=== PATIENT | female | born 1945 | race Caucasian/White ===

== ENCOUNTER → 2021-02-08 10:07 | Outpatient (CLI) | payer MEDICARE, OTHER, SELFPAY ==
[2021-02-08 11:40] LABS: COVID19 -Nasal RAPID Negative (Negative)
== END ==
PROVIDERS: Visit Provider Student in an Organized Health Care Education/Training Program
DX: Z01.812 Encounter for preprocedural laboratory examination (principal); Z20.822 Contact with and (suspected) exposure to COVID-19
CPT/HCPCS: 87635

== ENCOUNTER 2021-02-10 07:26 | Inpatient (IN) | payer MEDICARE, OTHER, SELFPAY ==
[2021-02-08 14:00] VITALS: BMI 32.3
[2021-02-10] VITALS (32 sets, daily range): BP systolic 99–151; BP diastolic 34–122; PULSE 65–98; RESP 8–18; TEMP 36.1–36.9; O2SAT 91–99; BMI 32.3
--- NOTE | 2021-02-10 08:20 | PM.PREOP ---
Pre-operative Note COVID-19 COVID-19 status: Negative Result date/Date tested (Pos, Neg/Pending): 02/08/21 Interval Note History & Physical reviewed/Exam performed by Physician: Yes Changes to H&P: No
[2021-02-10] MEDS: LACTATED RINGERS 1,000 ML 42 ML IV ×2 (08:46→10:34)
[2021-02-10] MEDS: CEFAZOLIN 1 GM VIAL 2 GM IV ×2 (08:55→17:02)
[2021-02-10] MEDS: SCOPOLAMINE 1 PATCH TOP (09:10)
--- NOTE | 2021-02-10 09:21 | SUR.OPER ---
Prone on spine table, head in foam head support, padded chest and pelvic supports, gel pad at knees, lower legs supported by pillows; nipples, genitalia and toes free of pressure, arms secured on foam padded arm boards at <90 degrees abduction. Tape over blanket at thigh secured to table.
[2021-02-10] MEDS: BUPIVACAINE LIPOSOME 266 MG/20 ML VIAL INJ (09:30)
--- NOTE | 2021-02-10 13:19 | DI.RAD.S_ITS ---
PROCEDURE: XR LUMBAR SPINE 2-3V INDICATIONS: L2-3, L3-4 TLIF TECHNIQUE: 2 intraoperative fluoroscopic spot films were obtained COMPARISON: None. FINDINGS: Low resolution fluoroscopic spot films show L2-3 and L3-4 interbody spacer grafts and pedicle screws at L2, L3 and L4 with associated paraspinal rods in good position. IMPRESSION: L2-3 and L3-4 interbody fusion instrumentation in progress Dictated by: Deepak Gasca M.D. on 02/10/2021 at 13:34 Approved by: Deepak Gasca M.D. on 02/10/2021 at 13:36
--- NOTE | 2021-02-10 13:30 | P.OP_ITS ---
Operative Date/Time/Diagnoses Date of procedure: 02/08/21 Time of procedure: 09:06 Pre-op diagnosis: 1. 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 L2-3, L3-4 spondylosis with radiculopathy Post-op diagnosis: same Procedure & Clinicians Procedure: 1. L2-3, L3-4 Postero-lateral and posterior interbody fusion 2. L2-3, L3-4 interbody cage placement. 3. L2-3, L3-4 decompressive laminectomy with bilateral facetecomies 4. L2-3, L3-4 Posterior segmental instrumentation 5. [place] of bone marrow from iliac crest 6. Utilization of microsurgical technique and operating microscope Same procedure as scheduled: Yes Indications: Patient has been having chronic back pain and worsening lumbar radiculopathy. Patient failed multiple conservative management with worsening pain weakness and numbness in her lower extremity. Patient has been having difficulty performing activity of daily living. After discussing risks benefits of treatment options, patient elected proceed with surgery. Surgeon: Carri Scott Account Service Associate: Abbe Nunez Click Yes if Unassisted: No Anesthesia Type: General Operative Notes Closure Type: primary Specimen(s): none sent Prosthetic devices, grafts, tissues, transplants, or devices: Globus revolve screws, Rise cages Applied: catheter Estimated Blood Loss (mL): 350 Blood products transfused: none Procedure in detail: Patient was seen in the preoperative area. Risks and benefits of the surgery was discussed with the patient. Informed consent was obtained from the patient and placed in the chart. Surgical site was marked. Patient was taken to the operative room. General anesthesia was administered. Prophylactic antibiotic was given to the patient less than 30 min before the incision was made. Patient was placed into a prone position on the Brian table. Patient's back was then prepped and draped in the sterile fashion. Time- out was performed at this time. Using AP and lateral C-arm imaging the interval between L2-3, L3-4 was identified and marked on patient's back. A 2 inch incision 2 in from midline was made on the left side first. The fascia was incised in line with skin incision. Globus MARS retractors was placed inside the incision and docked onto the L2 and L3 lamina. Using microsurgical technique and operating microscope, a L2 and L3 laminectomy and L2-3, L3-4 facetectomy was performed using a Kerrison rongeur. The disc space at L2-3, L3-4 was identified. And a total diskectomy was performed at L2-3, L3-4 level. The endplates were decorticated using a rasp and shaver. The total diskectomy and decortication was performed at L2-3, L3-4 level in order to to accomplish a L2-3, L3-4 fusion. The local bone from the laminectomy and facetectomy was saved for local bone grafting. Patient was found have severe central and neuroforaminal stenosis at both levels. The stenosis was fully decompressed after the laminectomy and facetectomy as well as the discectomies was completed. After the total diskectomy and decortication was completed, Trifecta bone graft material was combined with local bone that was harvested earlier. At this time, a separate skin is incision was made over the iliac crest. A Jamshidi needle was inserted into the iliac crest through a separate skin incision. 5 cc of bone marrow aspiration was obtained through the separate skin incision using a Jamshidi needle from the iliac crest. The bone marrow aspiration was combined with local bone and the Trifecta bone grafting material. The bone grafting material was placed into the L2-3, L3-4 interbody space along with two cages, one expandable cage at each level. The cages were expanded to their maximum height using the torque limiting screwdriver. At this time a mirror image incision was made on the right side. The fascia was incised in line with the skin incision. Globus MARS retractor was inserted and docked onto the L2-3, L3-4 posterolateral gutter. Using the power drill, posterior-lateral decortication was performed at L2-3, L3-4 level until bleeding cortical bone was identified. The remaining bone grafting material was placed into the L2-3, L3-4 posterior lateral gutter he order to accomplish posterolateral fusion at the L2-3, L3-4 levels. Using the double C-arm technique, pedicle screws were placed into the L2, L3, L4 pedicles bilaterally. This was done by placing the Jamshidi needle into the pedicles, then placing the guidewires over the Jamshidi needle, and finally placing the cannulated screws over the guidewires bilaterally. After the pedicle screws were placed, 2 titanium rods was locked into the heads of the pedicle s crews using locking caps and torque limiting screwdriver. Total 6 pedicles screws were placed. After all the hardware was placed, and confirmed with AP and lateral C-arm imaging, the wound was then irrigated with sterile normal saline and packed with Ray-Domo gauze for 3 min to accomplish hemostasis. After the gauze was removed the deep fascia was closed with #1 Vicryl suture. The subcutaneous layer was closed with 2-0 Vicryl. The skin was closed with skin som. Patient tolerated the procedure well. There were no complications. Complications: none Post-operative Condition: stable Disposition: PACU Plan for aftercare: Admit to inpatient hospital
[2021-02-10] MEDS: fentaNYL 100 MCG/2 ML INJ IV ×2 (13:49→13:58)
[2021-02-10] MEDS: HYDROMORPHONE 2 MG INJ IV (13:52)
[2021-02-10] MEDS: METOCLOPRAMIDE 10 MG/2 ML INJ IV (13:57)
[2021-02-10] MEDS: LORazepam 2 MG/ML INJ 0.5 MG IV (14:02)
[2021-02-10] MEDS: hydrOXYzine 50 MG/ML INJ IM (15:00)
--- NOTE | 2021-02-10 15:59 | PC.NURSE ---
Report received by PACU nurse.
--- NOTE | 2021-02-10 16:15 | SUR.PHASEI ---
PACU NOTE: PATIENT STARTED IN RECOVERY WITH 10/10 PAIN, MEDICATION GIVEN IV TITRATED TO EFFECT OF TOLERABLE LEVEL 4/10. PATIENT THEN DOZED OF FREQ WITH BRIEF APNEIC PERIODS REQUIRING FREQ REMINDERS TO TAKE DEEP BREATHS. ONCE THIS RESOLVED, AND VSS, REPORT CALLED TO GUSTAVO OSEGUERA FOR RM 222. ALL QUESTIONS ANSWERED TO SATISFACTION. PATIENT BROUGHT UP W/ 2L/NC IN PLACE, SIDELYING WITH SUPPORT PILLOWS, ICE PACK, AND PAIN REMAINING AT 4/10 DESCRIBED DISCOMFORT BUT TOLERABLE. HV COMPRESSED AND PATENT WITH SEROUS/SANG DRAINAGE. FELIX DRAINED OF 400CC'S YELLOW CLOUDY URINE WITH SEDIMENT. SENT UA TO LAB AFTER RECEIVED VERBAL ORDER. HANDOFF OF PATIENT AT BEDSIDE IN RM 222 TO GUSTAVO OSEGUERA. PATIENT IN STABLE CONDITION. FOOT SCD'S IN PLACE, O2 AT 2L/NC.
[2021-02-10 16:18] LABS: Bacteria Urine None Seen
[2021-02-10] MEDS: SODIUM CHLORIDE 0.9% 1,000 ML 100 ML IV (16:29)
[2021-02-10] MEDS: GABAPENTIN 400 MG CAPSULE 800 MG PO ×2 (17:03→21:33)
[2021-02-10 17:15] LABS: Appearance Urine UA TURBID; Bilirubin Urine UA NEGATIVE (NEGATIVE); Color Urine UA YELLOW; Glucose Urine UA NEGATIVE (Negative); Ketones Urine UA 2+ (NEGATIVE); Leukocyte Esterase Urine UA NEGATIVE (NEGATIVE); Nitrite Urine UA NEGATIVE (Negative); Occult Blood Urine UA NEGATIVE (Negative); Protein Urine UA NEGATIVE (Negative); Specific Gravity Urine UA 1.025 (1.000-1.035); Urobilinogen Urine UA 0.2 E.U./dL (0.2); pH Urine UA 5.5 (4.5-8.0)
[2021-02-10 17:21] LABS: Amorphous Sediment Urine 1+; Culture Indicated Urine Cult Not Indicated; RBC Urine 0-1/HPF (0-5/HPF); Squamous Epithelial Cell Urine 0-1 /HPF (0-5/HPF); Transitional Epi Cells Urine 1-5/HPF (0-5/HPF); WBC Urine 0-1/HPF (0-5/HPF)
[2021-02-10] MEDS: HYDROMORPHONE 0.5 MG INJ IV ×2 (18:03→21:38)
[2021-02-10] MEDS: MAGNESIUM OXIDE 400 MG TABLET PO (20:30)
[2021-02-10] MEDS: BACLOFEN 10 MG TABLET PO (20:30)
[2021-02-10] MEDS: DOCUSATE 100 MG CAPSULE PO (20:31)
[2021-02-10] MEDS: SENNOSIDES 8.6 MG TABLET 17.2 MG PO (20:31)
[2021-02-10] MEDS: BUDESONIDE 0.5 MG/2 ML NEB INH (21:33)
[2021-02-11] VITALS (8 sets, daily range): BP systolic 102–122; BP diastolic 55–67; PULSE 78–92; RESP 14–18; TEMP 36.6–37.1; O2SAT 93–97
[2021-02-11] MEDS: OXYCODONE IR 5 MG TABLET 10 MG PO ×5 (00:28→20:25)
[2021-02-11] MEDS: hydrOXYzine pamoate 25 MG CAPSULE PO ×3 (00:28→11:49)
[2021-02-11] MEDS: CEFAZOLIN 1 GM VIAL 2 GM IV (00:29)
[2021-02-11] MEDS: SODIUM CHLORIDE 0.9% 1,000 ML 100 ML IV (02:05)
[2021-02-11] MEDS: PANTOPRAZOLE DR 40 MG TABLET PO (05:11)
[2021-02-11 05:23] LABS: Hematocrit 29.3 % (36-46); Hemoglobin 9.9 g/dL (12.0-16.0)
[2021-02-11] MEDS: hydroCHLOROthiazide 25 MG TABLET PO (08:19)
[2021-02-11] MEDS: DOCUSATE 100 MG CAPSULE PO ×2 (08:19→20:25)
[2021-02-11] MEDS: GABAPENTIN 400 MG CAPSULE 800 MG PO ×3 (08:20→20:26)
[2021-02-11] MEDS: BACLOFEN 10 MG TABLET PO ×2 (08:21→20:26)
[2021-02-11] MEDS: MULTIVITAMIN 1 TABLET 1 TAB PO (08:22)
[2021-02-11] MEDS: CHOLECALCIFEROL (VITAMIN D3) 1,000 UNIT TABLET 4000 UNIT PO (08:24)
--- NOTE | 2021-02-11 08:50 | P.PN_ITS ---
Subjective Subjective Date Patient Seen: 02/11/21 Time Patient Seen: 08:50 Interval history: Patient states she is doing well overall and is in mild discomfort at rest. At this time the patient denies fever, chills, nausea, chest pain, shortness of breath, or urinary retention. Patient states that she has slight decreased sensation along the lateral aspect of the left leg from the thigh extending to the proximal portion of the leg. Patient reports she is look ing forward to working with physical therapy today. Exam Vital Signs (past 8 hours): - 02/11/21 04:40 02/11/21 07:42 Temperature 98.5 F 98.7 F Pulse Rate 78 88 Respiratory Rate 14 18 Blood Pressure 115/64 118/55 L Pulse Oximetry 97 97 Oxygen Delivery Method Nasal Cannula Oxygen Flow Rate 0 Narrative Exam Narrative: Pleasant 75-year-old female postop day 1. Patient is resting comfortably in bed, is in no acute distress, is alert and oriented x3. Skin is warm and dry, and the skin surrounding the incision site is free of erythema, warmth, induration, or discharge. Bandage over the incision site is free of strike through is clean and dry. Good sensation appreciated throughout the bilateral lower extremities to light touch with exception to the lateral aspect of the left leg from the thigh to the proximal portion of the left leg. Ankle dorsiflexion, plantar flexion, eversion, inversion performed bilaterally without difficulty or discomfort. Calves are soft and nontender, negative Homans sign. Palpable pulses appreciated, capillary refill less than 2 seconds. No other signs of DVT appreciated at this time. Const General: cooperative, healthy appearing and comfortable Resp Effort & Inspection: normal respiratory effort and able to speak in complete sentences Auscultation: clear to auscultation bilaterally Skin General: no rashes or lesions noted Objective Labs Result Diagrams: 02/11/21 05:09 Labs: Laboratory Results - last 24 hr 02/10/21 02/11/21 15:47 05:09 Hgb 9.9 L Hct 29.3 L Urine Color Yellow Urine Appearance Turbid Urine pH 5.5 Ur Specific [place] 1.025 Urine Protein Negative Urine Glucose (UA) Negative Urine Ketones 2+ H Urine Occult Blood Negative Urine Nitrate Negative Urine Bilirubin Negative Urine Urobilinogen 0.2 Ur Leukocyte Esterase Negative Urine RBC 0-1/hpf Urine WBC 0-1/hpf Ur Squamous Epith Cells 0-1 /hpf Ur Transition Epith Cell 1-5/hpf Amorphous Sediment 1+ Urine Bacteria None seen Ur Culture Indicated? Cult not indicated PFSH Medical History GERD (gastroesophageal reflux disease) Herniated disc History of anesthesia reaction HTN (hypertension) Impaired hearing Kidney stone Left foot drop Nerve pain Numbness Osteoarthritis Shortness of breath Surgical History History of repair of hiatal hernia Hx of bilateral cataract extraction Hx of fusion of cervical spine (05/27/15) Hx of lumbar discectomy Hx of tonsillectomy Social History household members: none Smoking Status: Former smoker alcohol intake: current Assessment & Plan Post-op Postoperative Procedures: Procedures Operation Date: 02/10/21 08:45 Actual Procedures Side Surgeon p L2-3,L3-4 TLIF w/posterior instrumentation Carri Scott MD Postoperative day: 1 Postoperative status: doing well Postoperative plan: ambulate Postoperative plan narrative: Patient is to continue working on ambulation with the assistance of a front wheeled walker with physical therapy. Current pain management regimen is to be continued as it is adequately controlling the patient's pain level at this time. Patient is to refrain from bending, twisting, or lifting in excess of 10 lb. Discussed with patient the possible need for outpatient physical therapy. Time Spent With Patient Time with patient: 15-24 minutes Quality VTE Deep Vein Thrombosis/Pulmonary Embolism Present on Admission: No
--- NOTE | 2021-02-11 09:16 | PM.DS.1 ---
History of Present Illness History of Present Illness Date Patient Seen: 02/11/21 Time Patient Seen: 09:16 Chief complaint: Translaminar Interbody Fusion/Laminotomy Narrative: Referred to previous HPI. 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 Following the procedure the patient has been convalescing appropriately in her pain has been managed with her current pain management regimen. Throughout the course of her stay in the hospital the patient has denied fever, chills, nausea, chest pain, shortness of breath, or urinary retention. Patient was successfully worked on ambulation with the assistance of a front wheeled walker with PT. Dressing over the incision site has been changed as needed throughout her stay. She has refrained from bending, twisting, or lifting in excess of 10 lb. Status at Discharge Cognitive/behavioral status at discharge: oriented Functional status at discharge: uses cane/walker Overall status at discharge: patient is progressing back to baseline Exam Vital Signs (past 8 hours): - 02/11/21 04:40 02/11/21 07:42 Temperature 98.5 F 98.7 F Pulse Rate 78 88 Respiratory Rate 14 18 Blood Pressure 115/64 118/55 L Pulse Oximetry 97 97 Oxygen Delivery Method Nasal Cannula Oxygen Flow Rate 0 Narrative Exam Narrative: Pleasant 75-year-old female postop day 1. Patient is resting comfortably in bed, is in no acute distress, is alert and oriented x3. Skin is warm and dry, and the skin surrounding the incision site is free of erythema, warmth, induration, or discharge. Bandage over the incision site is free of strike through is clean and dry. Good sensation appreciated throughout the bilateral lower extremities to light touch with exception to the lateral aspect of the left leg from the thigh to the proximal portion of the left leg. Ankle dorsiflexion, plantar flexion, eversion, inversion performed bilaterally without difficulty or discomfort. Calves are soft and nontender, negative Homans sign. Palpable pulses appreciated, capillary refill less than 2 seconds. No other signs of DVT appreciated at this time. Const General: cooperative, healthy appearing and comfortable Resp Effort & Inspection: normal respiratory effort and able to speak in complete sentences Auscultation: clear to auscultation bilaterally Skin General: no rashes or lesions noted Objective Labs Result Diagrams: 02/11/21 05:09 Labs: Laboratory Results - last 24 hr 02/10/21 02/11/21 15:47 05:09 Hgb 9.9 L Hct 29.3 L Urine Color Yellow Urine Appearance Turbid Urine pH 5.5 Ur Specific [place] 1.025 Urine Protein Negative Urine Glucose (UA) Negative Urine Ketones 2+ H Urine Occult Blood Negative Urine Nitrate Negative Urine Bilirubin Negative Urine Urobilinogen 0.2 Ur Leukocyte Esterase Negative Urine RBC 0-1/hpf Urine WBC 0-1/hpf Ur Squamous Epith Cells 0-1 /hpf Ur Transition Epith Cell 1-5/hpf Amorphous Sediment 1+ Urine Bacteria None seen Ur Culture Indicated? Cult not indicated PFSH Medical History GERD (gastroesophageal reflux disease) Herniated disc History of anesthesia reaction HTN (hypertension) Impaired hearing Kidney stone Left foot drop Nerve pain Numbness Osteoarthritis Shortness of breath Surgical History History of repair of hiatal hernia Hx of bilateral cataract extraction Hx of fusion of cervical spine (05/27/15) Hx of lumbar discectomy Hx of tonsillectomy Social History household members: none Smoking Status: Former smoker alcohol intake: current Discharge Assessment & Plan Assessment and Plan Assessment: Patient is doing well. Plan of Treatment: Patient is to refrain from bending, twisting, or lifting in excess of 10 lb. Patient is to continue the use of a front wheeled walker while ambulating. Outpatient physical therapy has been discussed with the patient and she has been encouraged to contact the clinic if she has any concerns or questions about physical therapy. Her current pain management regimen is to be continued as it is adequately controlled the patient's pain level. Dressing over the incision site can be changed as needed if it becomes damaged or soiled. The patient is to contact clinic with any concerns or questions. Any signs of increased pain, swelling, redness, warmth, or discharge from around the incision site should be reported the clinic. First postoperative visit in clinic is scheduled for 2 weeks following discharge from the hospital. Discharge Plan Discharge Plan Patient Disposition: Home Provider Discharge Comment: Patient cleared for discharge pending PT clearance. Discharge orders & Medications Prescriptions: New acetaminophen 325 mg Tablet 650 mg PO Q6HR PRN (Reason: Pain, Mild (1-3)) Qty: 90 RF: 0 oxycodone 5 mg Tablet 10 mg PO Q3HR PRN (Reason: Pain, Severe (7-10)) Qty: 42 RF: 0 Continued omeprazole 40 mg Capsule,Delayed Release(Dr/Ec) 40 mg PO QPM RF: 0 gabapentin 800 mg Tablet 800 mg PO TID RF: 0 baclofen 10 mg Tablet 10 mg PO BID RF: 0 diphenhydramine HCl [Benadryl] 25 mg Capsule 25 - 50 mg PO BEDTIME PRN (Reason: Sleep) RF: 0 hydrochlorothiazide 25 mg Tablet 25 mg PO DAILY RF: 0 Flovent HFA 110 mcg/actuation Hfa Aerosol Inhaler 1 puff INHALATION DAILY RF: 0 magnesium 200 mg Tablet 400 mg PO BEDTIME RF: 0 multivitamin [Multiple Vitamin] Tablet 1 tab PO DAILY RF: 0 Vitamin D3 100 mcg (4,000 unit) Capsule 100 mcg PO DAILY RF: 0 Follow up/Referrals: Johana Naik MD [Primary Care Provider] - Diet/Activity/Treatments Diet: Diet as Tolerated Activity: Ambulate with the assistance of a front wheeled walker. Avoid bending, twisting, or lifting in excess of 10 lb. Skin/Wound/Dressing Care Report to your healthcare provider any signs of infection, such as:: chills, fever, night sweats, increased pain, unusual drainage and unusual redness Dressing: Dressing over the incision site can be changed as needed if it becomes damaged or soiled. Other wound treatment: Avoid placing topical ointments on the incision site or soaking the incision site. Visit Report/Discharge Packet Instructions: DI for Heart Failure, DI for Prescription Opioid Use, DI for Transforaminal Lumbar Interbody Fusion Stand Alone Forms: Surgery Discharge Discharge Data Primary Care Provider: Johana Naik VTE Deep Vein Thrombosis/Pulmonary Embolism Present on Admission: No
--- NOTE | 2021-02-11 09:24 | CM.DANOTE ---
Addendum entered by Coral Singh LPN 02/11/21 11:56: spoke with ortho JENY Mcadams before Rounds: 914. He clarified that the d/c order had been placed in case the pt did well enough to go home today and is cleared by PT. He confirmed that he did not know if she was medically ready for d/c. Alerted him to the INPT admission status order. He then spoke with RN Savanah Elias, caring for pt, and the d/c order was cancelled. DIANA Clarke was present during Rounds as will as UR GUSTAVO Manuel. Tricia stated she would follow up with JENY Mcadams for further clarification on UR issues around this/ Met now with pt and introduced self and role. Introduced self and role. 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 Surgeon: Dr. Scott Payer: Medicare and [employer]. Admission status: INPT: confirmed by UR GUSTAVO Manuel. PT and OT did work with pt and her daughter Viviana this morning and will see her again along with Viviana for further treatment and training. Pt states she very much desires to go home at d/c. Her son in law Mauricio Perkins and her daughter Viviana Perkins: cell [phone] are here from [place] and will be staying with pt for a week but then state they must return home at that time. Pt says she is aware that they are concerned about the home plan and says it is fine to discuss the post hospital plans with them. Did then speak by phone with Viviana and Mauricio, on speaker. Mauricio stated that Dr. Scott had talked with pt prior to d/c and recommended a short snf rehab stay as she does live alone. Viviana says she understands that her mother very much wants the home plan and she is hopeful that she can progress to basic independent mobility in the room prior to d/c. HH discussed as option to bridge gap after they leave. Both also are looking to the therapy team for their recommendations. P: at this time, likely home, ? tomorrow, with family for short stay and perhaps HH. Will talk further with pt and will check in with Viviana today when she comes in at 1400 for more training. Pt and Viviana confirm her home is well set up and she has needed equipment. Original Note: Discharge Planning/Care Management DCP: assessment: case received, EMR reviewed and d/c order is noted. Will follow after Team Rounds. OT is currently working with pt for first eval. Advanced directive, confirm from FAMILY Start: 02/10/21 16:49 Freq: Q24H Status: Complete Protocol: Document 02/10/21 17:31 KIRSTIE (Rec: 02/10/21 17:31 KIRSTIE [id number]) Advance Directive, confirm on record Time 17:31 Person contacted Copy in chart Copy received Yes Advanced directive available on record Yes CM Discharge Assessment Start: 02/11/21 09:23 Freq: Status: Active Protocol: Document 02/11/21 09:23 ITV (Rec: 02/11/21 09:24 ITV [id number]) Discharge Planning Assessment Advance Directives? Yes Advance Directives on File No History Provided By Medical Record Prior Living Arrangements House Household Members none Is patient alert and oriented? Yes Pre-Anesthesia Assessment Start: 02/08/21 13:59 Freq: Status: Active Protocol: Document 02/08/21 14:00 CAB (Rec: 02/08/21 14:55 CAB [id number]) Pre-Anesthesia Assessment PAC Comment Severe PONV. Pt states anesthesia used for surgery 05/27/15 worked very well. Anesthesia record for that surgery in surgery folder Preferred Name [facility] Patient Information Reviewed Via Phone Assessment Assessment Completed With Patient H&P Completed Within 30 Days Yes Diagnostic Results BMP/CMP,CBC,EKG,Urinalysis Comment Outside lab/EKG scanned, COVID screen 02/08/21 Negative Primary Care Provider Johana Naik Seen Specialist in Last 12 Months Yes Specialist Seen Opthamologist/Bean Sprout Laborer, Orthopedist Primary Language Martiniquais Independent Trader Required No Height 167.64 cm Weight 90.718 kg Body Mass Index (BMI) 32.3 Hearing Ability Hard of Hearing Visual Assist Glasses Dentition Type Teeth, Natural Present,Teeth, Broken Barriers to Learning None Hx Anesthesia Reactions Yes: Severe PONV Additional comment Pt nervous, anesthesia used for cervical fusion 2014 worked well Hx Family Anesthesia Reaction No Hx Malignant Hyperthermia No Hx Blood Transfusions No Anesthesia Review Requested No alcohol intake current alcohol intake frequency 0-2 drinks per day Smoking Status Former smoker Tobacco type cigarettes how long ago did patient quit smoking quit 25-30 years ago Substance Use Type does not use Pain Present Pain Reported Musculoskeletal Symptoms Abnormal Gait,Back Pain, Difficulty Walking,Muscle Spasms,Neck Pain History of Falling (Recent or History of No ) Patient is completely paralyzed or No completely immobile Mental Status Oriented to own ability Is patient on oxygen? No Does patient have LOMBARDI/SOB Yes: Coughing, wheezing, resolved w/Flovent Hx Sleep Apnea No Currently Taking a Beta Yoselyn No Can You Climb a Flight of Stairs Without Yes SOB Hx Chest Pain No Hx SOB Yes: Coughing, wheezing, resolved w/Flovent Hx Syncope or Dizziness No Anti-Coagulant Therapy No Has a Magistrate Judge No Cardiac Testing No Hx Pacemaker/ICD No Pacemaker Rep Required? No Cardiac Clearance Received Not Applicable Diet Type At Home Regular dysphagia No Gastrointestinal Symptoms Reflux Urinary Catheter Present No Hx Urinary Self Catheterization No Diabetes No Patient No Lactating No Hx Drug Resistant Organism No Presence of External or Internal Medical Yes: Cervical hardware, eye Devices lens Have you had any close contact with No someone diagnosed with COVID-19? Marital Status / Lives With none Prior Living Arrangements House Number of Floors (Floors) One Floor Support System Child/Children Does the Patient Have Assistance After Yes: Daughter will stay w/pt Surgery for a week to assist Patient Discharge Plan Description Return Home Comment Pt advised 1-3 day length of stay per surgeon Feels Safe in Current Environment Yes Been Physically Hurt or Threatened By a No Person in Current Environment Do you have thoughts of harming yourself None or others? Are you currently considering suicide? No Do you have a plan to hurt yourself or No Plan others? Do You Have Any Spiritual Beliefs That No May Affect Your HC Choices? Do You Have Any Cultural Practices That No May Affect Your HC Choices? Comment Zoroastrian Who Can We Speak to About Patient's Care Family, friends Identifying Code for Release of Patient Declines to issue Information Health Care Proxy/Next of Kin Viviana (daughter) Health Care Proxy Emergency Contact Name Ty (son) Emergency Contact Advance Directives? Yes Advance Directives on File No Requested Patient Bring Advanced Yes Directives DOS Power of Registered Physical Therapist Yes: Pt unusre Power of Registered Physical Therapist Name Ty (son) Power of Registered Physical Therapist PAC Instructions Durable medical equipment, Medications to take/avoid, Nasal antibiotic,No ETOH/ petroleum product on skin DOS, NPO,Pre-surgical wash,Sensory aids,Sturdy shoes/comfortable clothes,Do not bring valuables and remove jewelry
--- NOTE | 2021-02-11 10:10 | OT.IP.EVAL ---
Current Diagnoses Spinal stenosis, lumbar region with neurogenic claudication (02/10/21) Postlaminectomy syndrome, not elsewhere classified (02/10/21) Surgery Performed Operation Date: 02/10/21 08:45 Actual Procedures p L2-3,L3-4 TLIF w/posterior instrumentation - Carri Scott MD Past Medical History (Last Reviewed 02/11/21 @ 09:19 by Abbe Nunez PA-C) GERD (gastroesophageal reflux disease) Herniated disc History of anesthesia reaction HTN (hypertension) Impaired hearing Kidney stone Left foot drop Nerve pain Numbness Osteoarthritis Shortness of breath Surgical History (Last Reviewed 02/11/21 @ 09:19 by Abbe Nunez PA-C) History of repair of hiatal hernia Hx of bilateral cataract extraction Hx of fusion of cervical spine (05/27/15) Hx of lumbar discectomy Hx of tonsillectomy Occupational Therapy Inpatient Evaluation/Re-Eval M1 PT/OT-IP Prior Functional Status Start: 02/11/21 13:00 Freq: NEEDED Status: Active Protocol: Document 02/11/21 09:00 [facility] (Rec: 02/11/21 13:24 [facility] [id number]) Medical Review Prior Functional Status Communication Independent Mobility and Gait Pt states did not use a device , but only could stand for 30 minutes at a time. Activities of Daily Living and IADL's Pt states independent for all ADL and IADl needs, at times needing more time to complete due to her back pain. Prior Functional Level (Other details) Pt states her daughter is able to stay with her until next Monday to assist for her needs. Social History Household Members none Living Arrangements House Number of Floors (Floors) One Floor Number of Stairs To Enter/Railing? Pt states to enter at the side of the house with one step and then threshold to get into the house. Home Environment Standard Height Toilet,Walk in Shower Home Equipment Front Wheel Walker,Four Wheel Walker,Straight Cane,Bedside Commode,Shower Seat without Backrest,Millinery Copyist Additional Social History Comment Pt is a retired nurse. M2 OT-IP Current Condition Start: 02/11/21 13:00 Freq: Status: Active Protocol: Document 02/11/21 09:00 [facility] (Rec: 02/11/21 13:24 [facility] [id number]) Occupational Therapy Current Condition Current Condition Evaluation Date 02/11/21 Treatment Diagnosis s/p L2-3, L3-4 TLIF , mobility Diagnosis Onset Date 02/10/21 M3 OT- IP Subjective and Pain Start: 02/11/21 13:00 Freq: Status: Active Protocol: Document 02/11/21 09:00 [facility] (Rec: 02/11/21 13:24 [facility] [id number]) OT- Subjective Occupational Therapy Visit Type Type Initial Evaluation Visit Start Time 09:00 Visit Stop Time 10:10 Total Visit Minutes 42 Notes Pt seen for split treatment [id number] and [id number]. Pt's daughter present for the second part of the session. Occupational Therapy Visit Comments Patient Comments Pt agreed to get up. Patient/Caregiver Goals To go home. OT Pain Assessment Pain When Pain Assessed During Mobility Pain Present Pain Present Pain Reported Location Lower Back Intensity 6 Scale Used Numeric (0 - 10) M4 OT- IP ADL's Start: 02/11/21 13:00 Freq: Status: Active Protocol: Document 02/11/21 09:00 [facility] (Rec: 02/11/21 13:24 [facility] [id number]) OT [id number] Comments OT Self-Feeding Comments NOt at meal time. OT ADL-Grooming Comments OT Grooming Comments Not performed. OT ADL-Dressing General Eval Upper Body Dressing Ability Standby Assistance,Maximum Assistance Comments OT Dressing Comments Initiated education of LB dressing equipment so able to hoang/doff socks with increased independence and ability to follow her back precautions. OT ADL-Toileting General Evaluation Toileting Ability Total Assistance Areas Needing Assistance Empty Catheter or Colostomy Comments OT Toileting Comments Polk still in place. Pt states usually reaches from the front for pericare needs. Educated on options of toilet paper aid, getting a bidet, or having someone to assist her. OT ADL-Bathing Comments OT Bathing Comments To do showering tomorrow with pt. M5 OT- IP IADL's Start: 02/11/21 13:00 Freq: Status: Active Protocol: Document 02/11/21 09:00 [facility] (Rec: 02/11/21 13:24 [facility] [id number]) OT-Instrumental Activities of Daily Living Home Safety Awareness Home Safety Comments At this time pt a bit groogy and forgetful, per daughter not her baseline and maybe due to pain medications. Pt's daughter aware to provide assist and supervision as needed at home. M6 OT- IP Functional Cognition Start: 02/11/21 13:00 Freq: Status: Active Protocol: Document 02/11/21 09:00 [facility] (Rec: 02/11/21 13:24 [facility] [id number]) Cognitive Factors Limiting Selfcare Function Cognitive Ability Level of Alertness Alert,Drowsy Patient Orientation Name Attention Span Ability Capable of Focused Attention, Capable of Sustained Attention Ability to Follow Commands Able to Follow One Step Commands Safety Awareness Decreased Recall of Precautions,Decreased Ability to Apply Precautions, Underestimates Need for Assistance Cognitive Comments Cognitive Assessment Comments Pt not able to recall her back precautions at this time. Pt needing cues for FWW safety and to be sure to push up from the bed when coming to stand from surfaces. OT- Vision and Hearing OT- Hearing Assessment OT- Hearing Assessment WFL OT- Vision Assessment Visual Acuity Glasses For Reading M7 OT- IP Mobility and Balance Start: 02/11/21 13:00 Freq: Status: Active Protocol: Document 02/11/21 09:00 [facility] (Rec: 02/11/21 13:24 [facility] [id number]) OT- Bed Mobility Assessment Rolling Type of Rolling Roll to Left Level of Assistance Moderate Assistance Supine to Sit Supine to Sit Assist Minimal Assistance Sit to Supine Sit to Supine Assist Contact Guard Assistance OT-Transfer Assessment Sit to and From Stand Sit to and from Stand Minimal Assistance Transfers Transfer Ability Moderate Assistance Technique Transfer Destination Bed,Chair Transfer Technique Stand Step Pivot Devices Transfer Assistive Devices Gait Belt,Front Wheeled Walker Comments Mobility Comments MODA to help roll and then MOISES to get upright to the edge of the bed. MOISES to stand with FWW. MODA to transfer with FWW to right as LLE weak and needing to assist to guide the walker. OT- Gait Assessment Comments Gait Ability Comments Transfer only at this time. OT- Balance Assessment Sitting Balance and Reactions Static Sitting Balance Ability Good Dynamic Sitting Balance Ability Fair Standing Balance and Reactions Static Standing Balance Ability Poor M8 OT- IP Objective Assessments Start: 02/11/21 13:00 Freq: Status: Active Protocol: Document 02/11/21 09:00 [facility] (Rec: 02/11/21 13:24 [facility] [id number]) OT Gross Range of Motion Upper Extremity Range of Motion Assessment Within Functional Limits OT-Muscle Tone Assessment Muscle Tone WNL Yes M9 OT- IP Assessment and Plan Start: 02/11/21 13:00 Freq: Status: Active Protocol: Document 02/11/21 09:00 [facility] (Rec: 02/11/21 13:24 [facility] [id number]) OT Summary Assessment and Plan Potential Rehabilitation Potential Good Analytic Complexity at Evaluation Low Summary OT Impairments Pain,Functional Cognition, Functional Mobility,Grooming, Dressing,Toileting,Bathing, Toilet Transfers,Shower Transfers,Activity Tolerance Progress Towards Goals Slow Progress due to Pain,Slow Progress due to Medical Issues,Slow Progress due to Activity Tolerance,Slow Progress due to Cognition Assessment Summary Pt low complexity and main barriers are step, weakness/ numbeness in LLE, now needing assist for all ADl and functional mobility needs. Pt to have her daughter stay and assist at home. Therefore pending caregiver training and progress, pt looking to go home. OT to complete caregiver training at 10AM and go over functional mobility, showering and dressing needs with pt's daughter. Goals Grooming Goal Independent Dressing Goal Independent Toileting Goal Independent Bathing Goal Independent Toilet Transfer Goal Independent Shower Transfer Goal Independent Patient/Caregiver Education Goal Demonstrate Energy Conservation and Pacing, Caregiver Independent Assisting Patient Days to Meet Goals 7 Frequency of Treatment Frequency Of Treatment Once a Day Treatment Plan OT Treatment Plan ADL Training,Functional Cognition Training,Functional Mobility,Patient/Family Education,Discharge Planning Other Treatment Recommendations and Next caregiver training and shower Treatment Focus Discharge Recommendations OT Discharge Recommendations Home with 17/04 Assist Available Home Equipment Needs LB dressing equipment Transportation Needs at Discharge Private Vehicle
[2021-02-11] MEDS: BUDESONIDE 0.5 MG/2 ML NEB INH ×2 (10:27→19:34)
--- NOTE | 2021-02-11 11:02 | PT.IIE ---
Current Diagnoses Spinal stenosis, lumbar region with neurogenic claudication (02/10/21) Postlaminectomy syndrome, not elsewhere classified (02/10/21) Surgery Performed Operation Date: 02/10/21 08:45 Actual Procedures p L2-3,L3-4 TLIF w/posterior instrumentation - Carri Scott MD Surgical History (Last Reviewed 02/11/21 @ 09:19 by Abbe Nunez PA-C) History of repair of hiatal hernia Hx of bilateral cataract extraction Hx of fusion of cervical spine (05/27/15) Hx of lumbar discectomy Hx of tonsillectomy Medical History (Last Reviewed 02/11/21 @ 09:19 by Abbe Nunez PA-C) GERD (gastroesophageal reflux disease) Herniated disc History of anesthesia reaction HTN (hypertension) Impaired hearing Kidney stone Left foot drop Nerve pain Numbness Osteoarthritis Shortness of breath Physical Therapy Inpatient Evaluation/Re-Eval M1 PT/OT-IP Prior Functional Status Start: 02/11/21 13:00 Freq: NEEDED Status: Active Protocol: Document 02/11/21 11:02 AW (Rec: 02/11/21 13:52 AW [id number]) Medical Review Prior Functional Status Communication Independent Mobility and Gait Pt states did not use a device , but only could stand for 30 minutes at a time. Activities of Daily Living and IADL's Pt states independent for all ADL and IADl needs, at times needing more time to complete due to her back pain. Prior Functional Level (Other details) Pt states her daughter is able to stay with her until next Monday to assist for her needs. Social History Household Members none Living Arrangements House Number of Floors (Floors) One Floor Number of Stairs To Enter/Railing? Pt enters with one platform step and then a threshhold Home Environment Standard Height Toilet,Walk in Shower Home Equipment Front Wheel Walker,Four Wheel Walker,Straight Cane,Bedside Commode,Shower Seat without Backrest,Machine Repair Person Employment Status Retired Additional Social History Comment Pt is a retired RN M2 PT-IP Current Condition Start: 02/11/21 08:20 Freq: NEEDED Status: Active Protocol: Document 02/11/21 11:02 AW (Rec: 02/11/21 12:24 AW [id number]) Physical Therapy Current Condition Current Condition Evaluation Date 05/20/21 Treatment Diagnosis L2-4 TLIF; impaired mobility and gait Onset Date 02/10/21 Precautions Lumbar Precautions Log Roll,No Twisting,Limit Bending,Lifting Restriction of 10 lbs,Gait Belt above Incisional Area Weight Bearing Status Weight Bearing Status Weight Bear as Tolerated M3 PT-IP Subjective Start: 02/11/21 08:20 Freq: NEEDED Status: Active Protocol: Document 02/11/21 11:02 AW (Rec: 02/11/21 12:24 AW [id number]) Subjective Physical Therapy Visit Type Type Initial Evaluation Visit Start Time 10:30 Visit Stop Time 11:02 Total Visit Minutes 21 Notes Pt;'s daughter, Viviana, was present throughout evaluation Number of RADIO INTERFERENCE SUPERVISOR Visits 0 Physical Therapy Visit Comments Patient Comments Pt is willing to participate with PT Patient Goals Return home at discharge with family support Therapy Pain Assessment Pain When Pain Assessed During Mobility Pain Present Pain Present Pain Reported Location Lower Back Scale Used not quantified Pain Behaviors Wincing Pain Management Techniques Modification of Treatment,Re- positioning,Timing of Activity with Medications M4 PT-IP Mobility and Gait Start: 02/11/21 08:20 Freq: NEEDED Status: Active Protocol: Document 02/11/21 11:02 AW (Rec: 02/11/21 12:24 AW [id number]) PT-Transfer Assessment Sit to and From Stand Sit to and from Stand Moderate Assistance,1 Person Assistance,Use of Upper Extremities Equipment Transfer Assistive Device Gait Belt,Front Wheeled Walker Transfers Transfer Destination Chair Transfer Technique Stand Step Pivot Transfer Ability Level of Assist Contact Guard Assistance,1 Person Assistance,Use of Upper Extremities Comments Mobility Comments Pt was sitting up in the bedside chair as PT arrived. She was able to scoot forward on the chair SBA and to stand mod assist with poor control of left lower extremity, requiring tactile cues for knee extension. She ambulated 12 feet in the room with FWW. Gait was significant for left lean in ipsilateral stance. Pt returned to the chair, transferring CGA. Pt was left with call light and all needs in reach. Gait Assessment Gait Gait Assistance Required: Contact Guard Assist Distance (Feet) 12 Able to Maintain Weight Bearing Status Yes During Gait Assistive Devices Assistive Device Gait Belt,Front Wheeled Walker Orthotic/Prosthetic Devices or Brace: No Gait Deviations General Gait Pattern Antalgic,Decreased Stride Length,Decreased Feet Clearance,Flexed Trunk,Lateral Trunk Lean,Step-to Gait Factors Limiting Gait Function Factors Limiting Gait Function Decreased Activity Tolerance, Decreased Sensation,Decreased Strength,Limited Range of Motion,Pain,Poor Balance,Poor Safety Awareness Comments Gait Comments See mobility comments for details. Stair Climbing Assessment Comments Stair Climbing Comments Not assessed PT-Balance Assessment Sitting Balance and Reactions Static Sitting Balance Ability Good Dynamic Sitting Balance Ability Fair Standing Balance and Reactions Static Standing Balance Ability Fair Dynamic Standing Balance Ability Fair Device Used FWW M5 PT-IP Objective Assessments Start: 02/11/21 08:20 Freq: NEEDED Status: Active Protocol: Document 02/11/21 11:02 AW (Rec: 02/11/21 12:33 AW [id number]) Orientation Orientation/Cognition Level of Alertness Alert Orientation Name,Month,Place,Situation Language Function Ability No Deficits Noted Safety Awareness Decreased Safety Awareness Memory Description No Deficits Noted Gross Range of Motion Lower Extremity ROM Assessment Within Functional Limits Strength Lower Extremity Strength Assessment Left Impaired Hip 3+/5 Knee 4-/5 Ankle 3+/5 Comments Strength Comments RLE grossly 4/5 Coordination Assessment Gross Coordination Gross Coordination WNL Assessment Finger to Nose Test Normal Performance Foot Tapping Test Normal Performance Sensation Assessment Sensation Gross Sensation Left LE Impaired Light Touch Impaired Proprioception (Position) Impaired Comments Sensation Comments Pt reports LLE numbness in hip , lateral thigh, lateral shank , and dorsal foot. 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 Muscle Tone Muscle Tone WNL Yes M6 PT-IP Treatment Start: 02/11/21 08:20 Freq: NEEDED Status: Active Protocol: Document 02/11/21 11:02 AW (Rec: 02/11/21 12:33 AW [id number]) Physical Therapy Treatment Education Education Provided Precautions,Weight Bearing Status,Post-Op Packet,Safety Other Treatments Other Treatment Performed Educated pt on PT plan of care , post op precautions, current level of care required. M7 PT-IP Assessment and Plan Start: 02/11/21 08:20 Freq: NEEDED Status: Active Protocol: Document 02/11/21 11:02 AW (Rec: 02/11/21 13:18 AW [id number]) PT Summary Assessment and Plan Potential Rehabilitation Potential Good Status of Condition at Evaluation Evolving Summary Impairments Pain,ROM,Strength,Balance, Sensation,Bed Mobility, Transfers,Gait,Activity Tolerance Assessment Summary Valerie is a 77 yo woman seen for PT evaluation on POD1 following L2-4 TLIF. She is independent at baseline with mobility and ADL's. She is able to tolerate shopping trips. On evaluation, pt presents with left lower extremity weakness and balance impairments affecting her mobility independence after surgery. PT will continue to follow and will conduct caregiver training with pt's daughter who will be staying with her for one week at discharge. Pt would also likely benefit from home health therapy to progress her independent mobility at home. Goals Bed Mobility Goal Standby Assistance Transfer Goal Standby Assistance,Front Wheeled Walker Gait Goal Standby Assistance,Front Wheel Walker Gait Distance 100 Other Goals - up/down platform step x 2 with FWW or SPC Days to Meet Goals 4 Frequency of Treatment Frequency Of Treatment Twice a Day Treatment Plan Physical Therapy Treatment Plan Bed Mobility Training,Transfer Training,Gait Training, Therapeutic Exercise,Balance Retraining,Post Op Education, Discharge Planning,Hot or Cold Pack,Neuromuscular Re-ed Other Recommendations and Next Treatment gait training; transfers; CGT Focus with daughter, Viviana Precautions Lumbar Precautions Log Roll,No Twisting,Limit Bending,Lifting Restriction of 10 lbs,Gait Belt above Incisional Area Recommendations To Nursing Amount of Assist Needed 1 Person Assist Discharge Recommendations PT Discharge Recommendations Home with Assistance,Home with 24/ Assist Available,Home Health Transportation Needs at Discharge Private Vehicle
--- NOTE | 2021-02-11 11:55 | CM.DANOTE ---
Discharge Planning/Care Management Advanced directive, confirm from FAMILY Start: 02/10/21 16:49 Freq: Q24H Status: Complete Protocol: Document 02/10/21 17:31 KIRSTIE (Rec: 02/10/21 17:31 KIRSTIE [id number]) Advance Directive, confirm on record Time 17:31 Person contacted Copy in chart Copy received Yes Advanced directive available on record Yes CM Discharge Assessment Start: 02/11/21 09:23 Freq: Status: Active Protocol: Document 02/11/21 09:23 ITV (Rec: 02/11/21 09:24 ITV [id number]) Discharge Planning Assessment Advance Directives? Yes Advance Directives on File No History Provided By Medical Record Prior Living Arrangements House Household Members none Is patient alert and oriented? Yes Document 02/11/21 11:54 ITV (Rec: 02/11/21 11:55 ITV [id number]) Discharge Planning Assessment Advance Directives? Yes Advance Directives on File No History Provided By Patient,Family Member,Medical Record Prior Living Arrangements House Household Members none Type of transporation used prior to Drives own vehicle admit Independent with ADL's Yes Is patient alert and oriented? Yes Pre-Anesthesia Assessment Start: 02/08/21 13:59 Freq: Status: Complete Protocol: Document 02/08/21 14:00 CAB (Rec: 02/08/21 14:55 CAB [id number]) Pre-Anesthesia Assessment PAC Comment Severe PONV. Pt states anesthesia used for surgery 05/27/15 worked very well. Anesthesia record for that surgery in surgery folder Preferred Name [facility] Patient Information Reviewed Via Phone Assessment Assessment Completed With Patient H&P Completed Within 30 Days Yes Diagnostic Results BMP/CMP,CBC,EKG,Urinalysis Comment Outside lab/EKG scanned, COVID screen 02/08/21 Negative Primary Care Provider Johana Naik Seen Specialist in Last 12 Months Yes Specialist Seen Opthamologist/Stretching Machine Tender Frame, Orthopedist Primary Language Ukrainian Carpet Technician Required No Height 167.64 cm Weight 90.718 kg Body Mass Index (BMI) 32.3 Hearing Ability Hard of Hearing Visual Assist Glasses Dentition Type Teeth, Natural Present,Teeth, Broken Barriers to Learning None Hx Anesthesia Reactions Yes: Severe PONV Additional comment Pt nervous, anesthesia used for cervical fusion 2014 worked well Hx Family Anesthesia Reaction No Hx Malignant Hyperthermia No Hx Blood Transfusions No Anesthesia Review Requested No alcohol intake current alcohol intake frequency 0-2 drinks per day Smoking Status Former smoker Tobacco type cigarettes how long ago did patient quit smoking quit 25-30 years ago Substance Use Type does not use Pain Present Pain Reported Musculoskeletal Symptoms Abnormal Gait,Back Pain, Difficulty Walking,Muscle Spasms,Neck Pain History of Falling (Recent or History of No ) Patient is completely paralyzed or No completely immobile Mental Status Oriented to own ability Is patient on oxygen? No Does patient have LOMBARDI/SOB Yes: Coughing, wheezing, resolved w/Flovent Hx Sleep Apnea No Currently Taking a Beta Yoselyn No Can You Climb a Flight of Stairs Without Yes SOB Hx Chest Pain No Hx SOB Yes: Coughing, wheezing, resolved w/Flovent Hx Syncope or Dizziness No Anti-Coagulant Therapy No Has a Information Security Specialist No Cardiac Testing No Hx Pacemaker/ICD No Pacemaker Rep Required? No Cardiac Clearance Received Not Applicable Diet Type At Home Regular dysphagia No Gastrointestinal Symptoms Reflux Urinary Catheter Present No Hx Urinary Self Catheterization No Diabetes No Patient No Lactating No Hx Drug Resistant Organism No Presence of External or Internal Medical Yes: Cervical hardware, eye Devices lens Have you had any close contact with No someone diagnosed with COVID-19? Marital Status / Lives With none Prior Living Arrangements House Number of Floors (Floors) One Floor Support System Child/Children Does the Patient Have Assistance After Yes: Daughter will stay w/pt Surgery for a week to assist Patient Discharge Plan Description Return Home Comment Pt advised 1-3 day length of stay per surgeon Feels Safe in Current Environment Yes Been Physically Hurt or Threatened By a No Person in Current Environment Do you have thoughts of harming yourself None or others? Are you currently considering suicide? No Do you have a plan to hurt yourself or No Plan others? Do You Have Any Spiritual Beliefs That No May Affect Your HC Choices? Do You Have Any Cultural Practices That No May Affect Your HC Choices? Comment Congregation Who Can We Speak to About Patient's Care Family, friends Identifying Code for Release of Patient Declines to issue Information Health Care Proxy/Next of Kin Viviana (daughter) Health Care Proxy Emergency Contact Name Ty (son) Emergency Contact Advance Directives? Yes Advance Directives on File No Requested Patient Bring Advanced Yes Directives DOS Power of Brisket Puller Yes: Pt unusre Power of Brisket Puller Name Ty (son) Power of Brisket Puller PAC Instructions Durable medical equipment, Medications to take/avoid, Nasal antibiotic,No ETOH/ petroleum product on skin DOS, NPO,Pre-surgical wash,Sensory aids,Sturdy shoes/comfortable clothes,Do not bring valuables and remove jewelry
--- NOTE | 2021-02-11 13:53 | OT.IP.EVAL ---
Current Diagnoses Spinal stenosis, lumbar region with neurogenic claudication (02/10/21) Postlaminectomy syndrome, not elsewhere classified (02/10/21) Surgery Performed Operation Date: 02/10/21 08:45 Actual Procedures p L2-3,L3-4 TLIF w/posterior instrumentation - Carri Scott MD Past Medical History (Last Reviewed 02/11/21 @ 09:19 by Abbe Nunez PA-C) GERD (gastroesophageal reflux disease) Herniated disc History of anesthesia reaction HTN (hypertension) Impaired hearing Kidney stone Left foot drop Nerve pain Numbness Osteoarthritis Shortness of breath Surgical History (Last Reviewed 02/11/21 @ 09:19 by Abbe Nunez PA-C) History of repair of hiatal hernia Hx of bilateral cataract extraction Hx of fusion of cervical spine (05/27/15) Hx of lumbar discectomy Hx of tonsillectomy Occupational Therapy Inpatient Evaluation/Re-Eval M1 PT/OT-IP Prior Functional Status Start: 02/11/21 13:00 Freq: NEEDED Status: Active Protocol: Document 02/11/21 11:02 AW (Rec: 02/11/21 13:52 AW [id number]) Medical Review Prior Functional Status Communication Independent Mobility and Gait Pt states did not use a device , but only could stand for 30 minutes at a time. Activities of Daily Living and IADL's Pt states independent for all ADL and IADl needs, at times needing more time to complete due to her back pain. Prior Functional Level (Other details) Pt states her daughter is able to stay with her until next Monday to assist for her needs. Social History Household Members none Living Arrangements House Number of Floors (Floors) One Floor Number of Stairs To Enter/Railing? Pt enters with one platform step and then a threshhold Home Environment Standard Height Toilet,Walk in Shower Home Equipment Front Wheel Walker,Four Wheel Walker,Straight Cane,Bedside Commode,Shower Seat without Backrest,Chief Lifestyle Officer Employment Status Retired Additional Social History Comment Pt is a retired RN M2 OT-IP Current Condition Start: 02/11/21 13:00 Freq: Status: Active Protocol: Document 02/11/21 09:00 CCC (Rec: 02/11/21 13:24 [facility] [id number]) Occupational Therapy Current Condition Current Condition Evaluation Date 02/11/21 Treatment Diagnosis s/p L2-3, L3-4 TLIF , mobility Diagnosis Onset Date 02/10/21 M3 OT- IP Subjective and Pain Start: 02/11/21 13:00 Freq: Status: Active Protocol: Document 02/11/21 09:00 [facility] (Rec: 02/11/21 13:24 [facility] [id number]) OT- Subjective Occupational Therapy Visit Type Type Initial Evaluation Visit Start Time 09:00 Visit Stop Time 10:10 Total Visit Minutes 42 Notes Pt seen for split treatment [id number] and [id number]. Pt's daughter present for the second part of the session. Occupational Therapy Visit Comments Patient Comments Pt agreed to get up. Patient/Caregiver Goals To go home. OT Pain Assessment Pain When Pain Assessed During Mobility Pain Present Pain Present Pain Reported Location Lower Back Intensity 6 Scale Used Numeric (0 - 10) M4 OT- IP ADL's Start: 02/11/21 13:00 Freq: Status: Active Protocol: Document 02/11/21 09:00 [facility] (Rec: 02/11/21 13:24 [facility] [id number]) OT [id number] Comments OT Self-Feeding Comments NOt at meal time. OT ADL-Grooming Comments OT Grooming Comments Not performed. OT ADL-Dressing General Eval Upper Body Dressing Ability Standby Assistance,Maximum Assistance Comments OT Dressing Comments Initiated education of LB dressing equipment so able to hoang/doff socks with increased independence and ability to follow her back precautions. OT ADL-Toileting General Evaluation Toileting Ability Total Assistance Areas Needing Assistance Empty Catheter or Colostomy Comments OT Toileting Comments [place] still in place. Pt states usually reaches from the front for pericare needs. Educated on options of toilet paper aid, getting a bidet, or having someone to assist her. OT ADL-Bathing Comments OT Bathing Comments To do showering tomorrow with pt. M5 OT- IP IADL's Start: 02/11/21 13:00 Freq: Status: Active Protocol: Document 02/11/21 09:00 [facility] (Rec: 02/11/21 13:24 [facility] [id number]) OT-Instrumental Activities of Daily Living Home Safety Awareness Home Safety Comments At this time pt a bit groggy and forgetful, per daughter not her baseline and maybe due to pain medications. Pt's daughter aware to provide assist and supervision as needed at home. M6 OT- IP Functional Cognition Start: 02/11/21 13:00 Freq: Status: Active Protocol: Document 02/11/21 09:00 [facility] (Rec: 02/11/21 13:24 [facility] [id number]) Cognitive Factors Limiting Selfcare Function Cognitive Ability Level of Alertness Alert,Drowsy Patient Orientation Name Attention Span Ability Capable of Focused Attention, Capable of Sustained Attention Ability to Follow Commands Able to Follow One Step Commands Safety Awareness Decreased Recall of Precautions,Decreased Ability to Apply Precautions, Underestimates Need for Assistance Cognitive Comments Cognitive Assessment Comments Pt not able to recall her back precautions at this time. Pt needing cues for FWW safety and to be sure to push up from the bed when coming to stand from surfaces. OT- Vision and Hearing OT- Hearing Assessment OT- Hearing Assessment WFL OT- Vision Assessment Visual Acuity Glasses For Reading M7 OT- IP Mobility and Balance Start: 02/11/21 13:00 Freq: Status: Active Protocol: Document 02/11/21 09:00 [facility] (Rec: 02/11/21 13:24 [facility] [id number]) OT- Bed Mobility Assessment Rolling Type of Rolling Roll to Left Level of Assistance Moderate Assistance Supine to Sit Supine to Sit Assist Minimal Assistance Sit to Supine Sit to Supine Assist Contact Guard Assistance OT-Transfer Assessment Sit to and From Stand Sit to and from Stand Minimal Assistance Transfers Transfer Ability Moderate Assistance Technique Transfer Destination Bed,Chair Transfer Technique Stand Step Pivot Devices Transfer Assistive Devices Gait Belt,Front Wheeled Walker Comments Mobility Comments MODA to help roll and then MOISES to get upright to the edge of the bed. MOISES to stand with FWW. MODA to transfer with FWW to right as LLE weak and needing to assist to guide the walker. OT- Gait Assessment Comments Gait Ability Comments Transfer only at this time. OT- Balance Assessment Sitting Balance and Reactions Static Sitting Balance Ability Good Dynamic Sitting Balance Ability Fair Standing Balance and Reactions Static Standing Balance Ability Poor M8 OT- IP Objective Assessments Start: 02/11/21 13:00 Freq: Status: Active Protocol: Document 02/11/21 09:00 [facility] (Rec: 02/11/21 13:24 [facility] [id number]) OT Gross Range of Motion Upper Extremity Range of Motion Assessment Within Functional Limits OT-Muscle Tone Assessment Muscle Tone WNL Yes M9 OT- IP Assessment and Plan Start: 02/11/21 13:00 Freq: Status: Active Protocol: Document 02/11/21 09:00 [facility] (Rec: 02/11/21 13:24 [facility] [id number]) OT Summary Assessment and Plan Potential Rehabilitation Potential Good Analytic Complexity at Evaluation Low Summary OT Impairments Pain,Functional Cognition, Functional Mobility,Grooming, Dressing,Toileting,Bathing, Toilet Transfers,Shower Transfers,Activity Tolerance Progress Towards Goals Slow Progress due to Pain,Slow Progress due to Medical Issues,Slow Progress due to Activity Tolerance,Slow Progress due to Cognition Assessment Summary Pt low complexity and main barriers are step, weakness/ numbness in LLE, now needing assist for all ADl and functional mobility needs. Pt to have her daughter stay and assist at home. Therefore pending caregiver training and progress, pt looking to go home. OT to complete caregiver training at 10AM and go over functional mobility, showering and dressing needs with pt's daughter. Goals Grooming Goal Independent Dressing Goal Independent Toileting Goal Independent Bathing Goal Independent Toilet Transfer Goal Independent Shower Transfer Goal Independent Patient/Caregiver Education Goal Demonstrate Energy Conservation and Pacing, Caregiver Independent Assisting Patient Days to Meet Goals 7 Frequency of Treatment Frequency Of Treatment Once a Day Treatment Plan OT Treatment Plan ADL Training,Functional Cognition Training,Functional Mobility,Patient/Family Education,Discharge Planning Other Treatment Recommendations and Next caregiver training and shower Treatment Focus Discharge Recommendations OT Discharge Recommendations Home with 17/04 Assist Available Home Equipment Needs LB dressing equipment Transportation Needs at Discharge Private Vehicle
--- NOTE | 2021-02-11 14:50 | PT.IPTN ---
Current Diagnoses Spinal stenosis, lumbar region with neurogenic claudication (02/10/21) Postlaminectomy syndrome, not elsewhere classified (02/10/21) Surgery Performed Operation Date: 02/10/21 08:45 Actual Procedures p L2-3,L3-4 TLIF w/posterior instrumentation - Carri Scott MD Physical Therapy Treatment Note M2 PT-IP Current Condition Start: 02/11/21 08:20 Freq: NEEDED Status: Active Protocol: Document 02/11/21 11:02 AW (Rec: 02/11/21 12:24 AW [id number]) Physical Therapy Current Condition Current Condition Evaluation Date 02/11/21 Treatment Diagnosis L2-4 TLIF; impaired mobility and gait Onset Date 02/10/21 Precautions Lumbar Precautions Log Roll,No Twisting,Limit Bending,Lifting Restriction of 10 lbs,Gait Belt above Incisional Area Weight Bearing Status Weight Bearing Status Weight Bear as Tolerated M3 PT-IP Subjective Start: 02/11/21 08:20 Freq: NEEDED Status: Active Protocol: Document 02/11/21 14:50 AW (Rec: 02/11/21 15:49 AW [id number]) Subjective Physical Therapy Visit Type Type Treatment Note Visit Start Time 14:25 Visit Stop Time 14:50 Total Visit Minutes 25 Notes Pt's daughter, Viviana, was present for caregiver training Number of WIND [employer]UR[employer] ENGINEER Visits 0 Physical Therapy Visit Comments Patient Comments Pt is willing to work with PT Therapy Pain Assessment Pain When Pain Assessed During Mobility Pain Present Pain Present Pain Reported Location Lower Back Intensity 4 Scale Used Numeric (0 - 10) Pain Management Techniques Modification of Treatment,Re- positioning,Timing of Activity with Medications M4 PT-IP Mobility and Gait Start: 02/11/21 08:20 Freq: NEEDED Status: Active Protocol: Document 02/11/21 14:50 AW (Rec: 02/11/21 15:49 AW [id number]) PT-Bed Mobility Assessment Sit to Supine Sit to Supine Minimal Assistance,1 Person Assistance PT-Transfer Assessment Sit to and From Stand Sit to and from Stand Minimal Assistance,1 Person Assistance,Use of Upper Extremities Equipment Transfer Assistive Device Gait Belt,Front Wheeled Walker Transfers Transfer Destination Bed Transfer Technique Stand Step Pivot Transfer Ability Level of Assist Contact Guard Assistance,1 Person Assistance,Use of Upper Extremities Comments Mobility Comments Pt was sitting on the chair as PT arrived. PT educated pt's daughter on donning a gait belt. Pt scooted forward on the chair and attempted to stand min A x 1 but was unable to shift her weight far enough forward. On second attempt, pt's daughter provided min assist for standing from the chair and was successful. She ambulated with FWW around the halls a total of 100' CGA with daughter providing appropriate cues and assist. On return to the room, pt needed min assist for reverse log roll and to elevate her legs to the bed. Pt was positioned in supine with call light and all needs in reach. Her daughter remained in the room. Gait Assessment Gait Gait Assistance Required: Contact Guard Assist Distance (Feet) 100 Able to Maintain Weight Bearing Status Yes During Gait Assistive Devices Assistive Device Gait Belt,Front Wheeled Walker Orthotic/Prosthetic Devices or Brace: No Gait Deviations General Gait Pattern Antalgic,Decreased Stride Length,Decreased Feet Clearance,Flexed Trunk,Lateral Trunk Lean,Step-to Gait Factors Limiting Gait Function Factors Limiting Gait Function Decreased Activity Tolerance, Decreased Sensation,Decreased Strength,Limited Range of Motion,Pain,Poor Balance,Poor Safety Awareness Comments Gait Comments High steppage gait LLE noted for foot clearance due to poor dorsiflexion left ankle. Left lean in stance was reduced at this encounter. Pt's daughter was able to safely assist. Stair Climbing Assessment Comments Stair Climbing Comments Not assessed PT-Balance Assessment Sitting Balance and Reactions Static Sitting Balance Ability Good Dynamic Sitting Balance Ability Fair Standing Balance and Reactions Static Standing Balance Ability Fair Dynamic Standing Balance Ability Fair Device Used FWW M5 PT-IP Objective Assessments Start: 02/11/21 08:20 Freq: NEEDED Status: Active Protocol: Document 02/11/21 11:02 AW (Rec: 02/11/21 12:33 AW [id number]) Orientation Orientation/Cognition Level of Alertness Alert Orientation Name,Month,Place,Situation Language Function Ability No Deficits Noted Safety Awareness Decreased Safety Awareness Memory Description No Deficits Noted Gross Range of Motion Lower Extremity ROM Assessment Within Functional Limits Strength Lower Extremity Strength Assessment Left Impaired Hip 3+/5 Knee 4-/5 Ankle 3+/5 Comments Strength Comments RLE grossly 4/5 Coordination Assessment Gross Coordination Gross Coordination WNL Assessment Finger to Nose Test Normal Performance Foot Tapping Test Normal Performance Sensation Assessment Sensation Gross Sensation Left LE Impaired Light Touch Impaired Proprioception (Position) Impaired Comments Sensation Comments Pt reports LLE numbness in hip , lateral thigh, lateral shank , and dorsal foot. 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 Muscle Tone Muscle Tone WNL Yes M6 PT-IP Treatment Start: 02/11/21 08:20 Freq: NEEDED Status: Active Protocol: Document 02/11/21 14:50 AW (Rec: 02/11/21 15:49 AW [id number]) Physical Therapy Treatment Education Education Provided Precautions,Safety M7 PT-IP Assessment and Plan Start: 02/11/21 08:20 Freq: NEEDED Status: Active Protocol: Document 02/11/21 14:50 AW (Rec: 02/11/21 15:49 AW [id number]) PT Summary Assessment and Plan Summary Impairments Pain,ROM,Strength,Balance, Sensation,Bed Mobility, Transfers,Gait,Activity Tolerance Progress Towards Goals Progressing Toward Goals Assessment Summary Valerie was able to improve her mobility this PM and her daughter was able to provide appropriate level of assist and cueing. Pt will shower with OT at 10:00 Monday morning. If daughter has any additional questions, PT will follow OT for further instruction. PT anticipates pt will be safe to discharge home with family assist. Goals Bed Mobility Goal Standby Assistance Transfer Goal Standby Assistance,Front Wheeled Walker Gait Goal Standby Assistance,Front Wheel Walker Gait Distance 100 Other Goals - up/down platform step x 2 with FWW or SPC Days to Meet Goals 4 Frequency of Treatment Frequency Of Treatment Twice a Day Treatment Plan Physical Therapy Treatment Plan Bed Mobility Training,Transfer Training,Gait Training, Therapeutic Exercise,Balance Retraining,Post Op Education, Discharge Planning,Hot or Cold Pack,Neuromuscular Re-ed Other Recommendations and Next Treatment gait training; transfers; CGT Focus with daughter, Viviana, as needed Precautions Lumbar Precautions Log Roll,No Twisting,Limit Bending,Lifting Restriction of 10 lbs,Gait Belt above Incisional Area Recommendations To Nursing Amount of Assist Needed 1 Person Assist Discharge Recommendations PT Discharge Recommendations Home with Assistance,Home with 17/04 Assist Available,Home Health Transportation Needs at Discharge Private Vehicle
--- NOTE | 2021-02-11 15:16 | PC.NURSE ---
pt tolerating pt/ot well with stable vitals- pain controlled with po oxycodone 10mg along with 25mg vistaril - hemovac with moderate bloody drainage + cms to bilat lower extremities with a little numbness to left lower extremitiy- pt requested pace to keep overnight - taking diet well
[2021-02-11] MEDS: SENNOSIDES 8.6 MG TABLET 17.2 MG PO (20:26)
[2021-02-11] MEDS: MAGNESIUM OXIDE 400 MG TABLET PO (20:26)
[2021-02-12] VITALS (7 sets, daily range): BP systolic 104–119; BP diastolic 46–61; PULSE 72–84; RESP 16–18; TEMP 36.9–37.8; O2SAT 91–95
[2021-02-12] MEDS: OXYCODONE IR 5 MG TABLET 10 MG PO ×3 (01:21→09:14)
[2021-02-12] MEDS: ACETAMINOPHEN 325 MG TABLET 650 MG PO ×2 (01:21→09:15)
[2021-02-12] MEDS: PANTOPRAZOLE DR 40 MG TABLET PO (05:26)
--- NOTE | 2021-02-12 06:29 | PC.NURSE ---
0628 [place] discontinued tolerated well, cath intact. Encouraged to call for assistance to the BR or BSC. Will monitor.
--- NOTE | 2021-02-12 07:40 | P.DS_ITS ---
History of Present Illness History of Present Illness Date Patient Seen: 02/12/21 Time Patient Seen: 07:40 Chief complaint: Translaminar Interbody Fusion/Laminotomy Narrative: Patient's pain is moderate. Denies fever or chills. No nausea or vomiting. Patient has assistance at home. Her is a retired physician library clerical assistant. Her daughter is a nurse. Discharge Providers Provider Date of admission: 02/10/21 07:26 Discharge Date: 02/12/21 Primary care physician: Johana Naik MD Consults: 02/10/21 16:17 Consult to Occupational Therapy Evaluate & Treat Comment: Physician Instructions: Evaluate and treat Consult to Physical Therapy Evaluate & Treat Comment: Physician Instructions: Evaluate and Treat Discharge provider: Toño Sahni PA-C Summary Hospital Course Discharge Diagnosis: 1. 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 L2-3, L3-4 spondylosis with radiculopathy 3. BMI 32.3 Hospital Course: 1. L2-3, L3-4 Postero-lateral and posterior interbody fusion 2. L2-3, L3-4 interbody cage placement. 3. L2-3, L3-4 decompressive laminectomy with bilateral facetecomies 4. L2-3, L3-4 Posterior segmental instrumentation 5. [place] of bone marrow from iliac crest 6. Utilization of microsurgical technique and operating microscope Same procedure as scheduled: Yes Indications: Patient has been having chronic back pain and worsening lumbar radiculopathy. Patient failed multiple conservative management with worsening pain weakness and numbness in her lower extremity. Patient has been having difficulty performing activity of daily living. After discussing risks benefits of treatment options, patient elected proceed with surgery. Surgeon: Carri Scott Jewelry Bench Molder: Abbe Nnuez Click Yes if Unassisted: No Anesthesia Type: General Operative Notes Closure Type: primary Specimen(s): none sent Prosthetic devices, grafts, tissues, transplants, or devices: Globus revolve screws, Rise cages Applied: catheter Estimated Blood Loss (mL): 350 Blood products transfused: none Patient admitted to the hospital for the above-mentioned procedure. Patient consented to the same. Patient underwent lumbar fusion February 10, 2021. Patient back in her room recovering well as in stable condition. Patient ambulating well. She will be discharged home today in stable condition. Status at Discharge Cognitive/behavioral status at discharge: at baseline, oriented Functional status at discharge: uses cane/walker Overall status at discharge: patient is progressing back to baseline Time Spent with Patient Time spent: Less than 30 minutes Exam Vital Signs (past 8 hours): - 02/12/21 00:18 02/12/21 01:21 02/12/21 01:58 Temperature 100.0 F H 100.0 F H 98.4 F Pulse Rate 84 Respiratory Rate 18 Blood Pressure 119/59 L Pulse Oximetry 91 02/12/21 02:01 02/12/21 05:31 Temperature 98.4 F 98.8 F Pulse Rate 81 Respiratory Rate 18 Blood Pressure 116/61 Pulse Oximetry 95 Oxygen Delivery Method Room Air Oxygen Flow Rate 0 Narrative Exam Narrative: Drain output 30 mL last shift. 75-year-old female resting comfortably in bed in no apparent distress. Neurovascular status is intact bilateral lower extremities. Dressing has scant moisture other ruiz intact. Objective Labs Result Diagrams: 02/11/21 05:09 [facility] Medical History GERD (gastroesophageal reflux disease) Herniated disc History of anesthesia reaction HTN (hypertension) Impaired hearing Kidney stone Left foot drop Nerve pain Numbness Osteoarthritis Shortness of breath Surgical History History of repair of hiatal hernia Hx of bilateral cataract extraction Hx of fusion of cervical spine (05/27/15) Hx of lumbar discectomy Hx of tonsillectomy Social History household members: none Smoking Status: Former smoker alcohol intake: current Discharge Assessment & Plan Assessment and Plan Assessment: Patient is doing well. Plan of Treatment: Patient is to refrain from bending, twisting, or lifting in excess of 10 lb. Patient is to continue the use of a front wheeled walker while ambulating. Outpatient physical therapy has been discussed with the patient and she has been encouraged to contact the clinic if she has any concerns or questions about physical therapy. Her current pain management regimen is to be continued as it is adequately controlled the patient's pain level. Dressing over the incision site can be changed as needed if it becomes damaged or soiled. The patient is to contact clinic with any concerns or questions. Any signs of increased pain, swelling, redness, warmth, or discharge from around the incision site should be reported the clinic. First postoperative visit in clinic is scheduled for 2 weeks following discharge from the hospital. Discharge Plan Discharge Plan Patient Disposition: Home Provider Discharge Comment: Patient cleared for discharge after PT today. Discharge orders & Medications Prescriptions: New acetaminophen 325 mg Tablet 650 mg PO Q6HR PRN (Reason: Pain, Mild (1-3)) Qty: 90 RF: 0 oxycodone 5 mg Tablet 10 mg PO Q3HR PRN (Reason: Pain, Severe (7-10)) Qty: 42 RF: 0 Continued omeprazole 40 mg Capsule,Delayed Release(Dr/Ec) 40 mg PO QPM RF: 0 gabapentin 800 mg Tablet 800 mg PO TID RF: 0 baclofen 10 mg Tablet 10 mg PO BID RF: 0 diphenhydramine HCl [Benadryl] 25 mg Capsule 25 - 50 mg PO BEDTIME PRN (Reason: Sleep) RF: 0 hydrochlorothiazide 25 mg Tablet 25 mg PO DAILY RF: 0 Flovent HFA 110 mcg/actuation Hfa Aerosol Inhaler 1 puff INHALATION DAILY RF: 0 magnesium 200 mg Tablet 400 mg PO BEDTIME RF: 0 multivitamin Tablet 1 tab PO DAILY RF: 0 Vitamin D3 100 mcg (4,000 unit) Capsule 100 mcg PO DAILY RF: 0 Follow up/Referrals: Carri Scott MD [Physician] - (2 weeks) Johana Naik MD [Primary Care Provider] - Diet/Activity/Treatments Diet: Diet as Tolerated Activity: Ambulate with the assistance of a front wheeled walker. Avoid bending, twisting, or lifting in excess of 10 lb. Cold/Heat Therapy: Apply ice as needed Skin/Wound/Dressing Care Report to your healthcare provider any signs of infection, such as:: chills, fever, night sweats, increased pain, unusual drainage and unusual redness Dressing: Dressing over the incision site can be changed as needed if it becomes damaged or soiled. Other wound treatment: Avoid placing topical ointments on the incision site or soaking the incision site. Visit Report/Discharge Packet Instructions: DI for Heart Failure, DI for Prescription Opioid Use, DI for Transforaminal Lumbar Interbody Fusion Stand Alone Forms: Surgery Discharge Discharge Data Primary Care Provider: Johana Naik Quality VTE Deep Vein Thrombosis/Pulmonary Embolism Present on Admission: No
[2021-02-12] MEDS: BUDESONIDE 0.5 MG/2 ML NEB INH (08:18)
--- NOTE | 2021-02-12 08:21 | CM.DPC ---
Addendum entered by Coral Singh LPN 02/12/21 17:44: Did update pt re the response to request to [facility]EN[facility] Sahni re ? HH/see original note below. Was unable to see pt's daughter but pt did express her understanding of info altho expressed surprise. Encouraged her and/or her family to reach out to the orthopedic clinic for further discussion and if they continued to feel that HH was needed. Addendum entered by Coral Singh LPN 02/12/21 08:42: Updated Chandrakant Pelaez. She reports that pace catheter will be taken out this morning. Pt still has hemacac in place, this is to be removed prior to d/c. Addendum entered by Coral Singh LPN 02/12/21 08:28: IMM #2 presented to pt as per protocol. Original Note: DCP: continued: ortho JENY Su is here now and d/c order plus d/c summary is in place. DC summary reviewed, noted the mention of pt's support system which was incorrect. Spoke then with Toño by phone to clarify the family members and the plan for them to be here for a week before returning to [place]. Toño expressed appreciation for info and plans to amend his report. Also discussed ? of HH. Toño stated this would not be needed and family would have to help pt set up any help pt might need after they leave. He stated that pt was doing very well. She would not need to get to the clinic for followup visit for a week and he will have his clinic staff reach out to pt to help her with transport to clinic options. He said he anticipated pt would be managing very well with ADLs in a week. Will check in with pt and her daughter with update. P: home today with family support.
[2021-02-12] MEDS: CHOLECALCIFEROL (VITAMIN D3) 1,000 UNIT TABLET 4000 UNIT PO (09:13)
[2021-02-12] MEDS: DOCUSATE 100 MG CAPSULE PO (09:13)
[2021-02-12] MEDS: BACLOFEN 10 MG TABLET PO (09:13)
[2021-02-12] MEDS: MULTIVITAMIN 1 TABLET 1 TAB PO (09:14)
[2021-02-12] MEDS: GABAPENTIN 400 MG CAPSULE 800 MG PO (09:14)
[2021-02-12] MEDS: hydroCHLOROthiazide 25 MG TABLET PO (09:14)
--- NOTE | 2021-02-12 10:30 | OT.IP.TRT ---
Current Diagnoses Spinal stenosis, lumbar region with neurogenic claudication (02/10/21) Postlaminectomy syndrome, not elsewhere classified (02/10/21) Surgery Performed Operation Date: 02/10/21 08:45 Actual Procedures p L2-3,L3-4 TLIF w/posterior instrumentation - Carri Scott MD Occupational Therapy Treatment Note M2 OT-IP Current Condition Start: 02/11/21 13:00 Freq: Status: Active Protocol: Document 02/11/21 09:00 [facility] (Rec: 02/11/21 13:24 [facility] [id number]) Occupational Therapy Current Condition Current Condition Evaluation Date 02/11/21 Treatment Diagnosis s/p L2-3, L3-4 TLIF , mobility Diagnosis Onset Date 02/10/21 M3 OT- IP Subjective and Pain Start: 02/11/21 13:00 Freq: Status: Active Protocol: Document 02/12/21 12:09 [facility] (Rec: 02/12/21 12:18 [facility] [id number]) OT- Subjective Occupational Therapy Visit Type Type Treatment Note Visit Start Time 10:30 Visit Stop Time 11:30 Total Visit Minutes 60 Occupational Therapy Visit Comments Patient Comments Pt's daughter present for caregiver training for ADl needs. Patient/Caregiver Goals TO go home. OT Pain Assessment Pain When Pain Assessed At Rest Pain Present Pain Present Denied Pain M4 OT- IP ADL's Start: 02/11/21 13:00 Freq: Status: Active Protocol: Document 02/12/21 12:09 [facility] (Rec: 02/12/21 12:18 [facility] [id number]) OT ADL-Grooming General Evaluation Grooming Ability Standby Assistance Areas Needing Assistance Retrieving/Set-up of Grooming Items OT ADL-Oral Care General Eval Oral Care Ability Standby Assistance Areas of Assistance Retrieving/Set-Up of Items OT ADL-Dressing General Eval Upper Body Dressing Ability Minimal Assistance Lower Body Dressing Ability Moderate Assistance Areas Needing Assistance Pants/Shorts,Socks Comments OT Dressing Comments Pt able to use the bilingual hr generalist to assist for LB dressing needs, educated to hoang her LLE first as it is weaker. OT ADL-Toileting Comments OT Toileting Comments Pt will still benefit from a toilet paper aid or assist for hygiene needs at home. OT ADL-Bathing Bathing Type Bathing Type Shower General Evaluation Bathing Ability Moderate Assistance Areas Needing Assistance Wash/Dry Back,Wash/Dry Perineal Area Comments OT Bathing Comments Pt's daughter able to safety assist for all showering needs with good safety. M6 OT- IP Functional Cognition Start: 02/11/21 13:00 Freq: Status: Active Protocol: Document 02/12/21 12:09 [facility] (Rec: 02/12/21 12:18 [facility] [id number]) Cognitive Factors Limiting Selfcare Function Cognitive Ability Level of Alertness Alert Patient Orientation Name Attention Span Ability Capable of Focused Attention, Capable of Sustained Attention Ability to Follow Commands Able to Follow One Step Commands Safety Awareness Decreased Recall of Precautions,Decreased Ability to Apply Precautions, Underestimates Need for Assistance Cognitive Comments Cognitive Assessment Comments Pt still a bit forgetful and needing cues to follow her back precautions. M7 OT- IP Mobility and Balance Start: 02/11/21 13:00 Freq: Status: Active Protocol: Document 02/12/21 12:09 [facility] (Rec: 02/12/21 12:18 [facility] [id number]) OT-Transfer Assessment Sit to and From Stand Sit to and from Stand Minimal Assistance Transfers Transfer Ability Minimal Assistance Technique Transfer Destination Chair,Shower Stall Transfer Technique Stand Step Pivot Devices Transfer Assistive Devices Gait Belt,Front Wheeled Walker Comments Mobility Comments Pt's daughter able to hoang/ doff gait belt with good safety. Noted before the shower, red irritation under her mother's left armpit, possibly from the gait belt- nursing notified. Also able to show pt's daughter how to assist the pt if she did have the gait belt on, by holding onto pt 's hips to assist. OT- Gait Assessment Comments Gait Ability Comments CGA with FWW, MOISES over thereshold on the shower with FWW. OT- Balance Assessment Sitting Balance and Reactions Static Sitting Balance Ability Good Dynamic Sitting Balance Ability Fair Standing Balance and Reactions Static Standing Balance Ability Fair M8 OT- IP Objective Assessments Start: 02/11/21 13:00 Freq: Status: Active Protocol: Document 02/11/21 09:00 [facility] (Rec: 02/11/21 13:24 [facility] [id number]) OT Gross Range of Motion Upper Extremity Range of Motion Assessment Within Functional Limits OT-Muscle Tone Assessment Muscle Tone WNL Yes M9 OT- IP Assessment and Plan Start: 02/11/21 13:00 Freq: Status: Active Protocol: Document 02/12/21 12:09 [facility] (Rec: 02/12/21 12:18 [facility] [id number]) OT Summary Assessment and Plan Potential Rehabilitation Potential Good Analytic Complexity at Evaluation Low Summary OT Impairments Pain,Functional Cognition, Functional Mobility,Grooming, Dressing,Toileting,Bathing, Toilet Transfers,Shower Transfers,Activity Tolerance Progress Towards Goals Progressing Toward Goals Assessment Summary Pt's daughter present for caregiver training and able to show good safety, understanding and awareness of how to assist her mother for all needs of ADl's with incorporation of back precautions. Educated pt's daughter to continue to supervise and assist pt at home to see whether pt may still need assist as pt's daughter will be leaving to go home eventually. Goals Grooming Goal Independent Dressing Goal Independent Toileting Goal Independent Bathing Goal Independent Toilet Transfer Goal Independent Shower Transfer Goal Independent Patient/Caregiver Education Goal Demonstrate Energy Conservation and Pacing, Caregiver Independent Assisting Patient Days to Meet Goals 6 Frequency of Treatment Frequency Of Treatment Once a Day Treatment Plan OT Treatment Plan ADL Training,Functional Cognition Training,Functional Mobility,Patient/Family Education,Discharge Planning Discharge Recommendations OT Discharge Recommendations Home with 17/04 Assist Available Home Equipment Needs LB dressing equipment issued Transportation Needs at Discharge Private Vehicle
--- NOTE | 2021-02-12 11:12 | PT.IPTN ---
Current Diagnoses Spinal stenosis, lumbar region with neurogenic claudication (02/10/21) Postlaminectomy syndrome, not elsewhere classified (02/10/21) Surgery Performed Operation Date: 02/10/21 08:45 Actual Procedures p L2-3,L3-4 TLIF w/posterior instrumentation - Carri Scott MD Physical Therapy Treatment Note M2 PT-IP Current Condition Start: 02/11/21 08:20 Freq: NEEDED Status: Active Protocol: Document 02/11/21 11:02 AW (Rec: 02/11/21 12:24 AW [id number]) Physical Therapy Current Condition Current Condition Evaluation Date 02/11/21 Treatment Diagnosis L2-4 TLIF; impaired mobility and gait Onset Date 02/10/21 Precautions Lumbar Precautions Log Roll,No Twisting,Limit Bending,Lifting Restriction of 10 lbs,Gait Belt above Incisional Area Weight Bearing Status Weight Bearing Status Weight Bear as Tolerated M3 PT-IP Subjective Start: 02/11/21 08:20 Freq: NEEDED Status: Active Protocol: Document 02/12/21 10:51 CLB (Rec: 02/12/21 11:30 CLB [id number]) Subjective Physical Therapy Visit Type Type Treatment Note Visit Start Time 10:51 Visit Stop Time 11:12 Total Visit Minutes 21 Notes daughter present for CG training. Number of OCC THER Visits 1 Physical Therapy Visit Comments Patient Comments Pt is willing to work with PT Therapy Pain Assessment Pain When Pain Assessed During Mobility Pain Present Pain Present Pain Reported Location Lower Back Intensity 4 Scale Used Numeric (0 - 10) Pain Management Techniques Modification of Treatment,Re- positioning,Timing of Activity with Medications M4 PT-IP Mobility and Gait Start: 02/11/21 08:20 Freq: NEEDED Status: Active Protocol: Document 02/12/21 10:51 CLB (Rec: 02/12/21 11:30 CLB [id number]) PT-Transfer Assessment Sit to and From Stand Sit to and from Stand Standby Assistance,1 Person Assistance,Use of Upper Extremities Equipment Transfer Assistive Device Gait Belt,Front Wheeled Walker Transfers Transfer Destination Chair Transfer Technique Stand Step Pivot Transfer Ability Level of Assist Standby Assistance,1 Person Assistance,Use of Upper Extremities Comments Mobility Comments Pt in chair with RN reviewing d/c paperwork. Pt scooted forward in chair daughter donned GB with wash cloth in area of sore under left arm then stood SBA. Pt ambulated ~ 50ft with small step thru gait pattern with daughter providing SBA. Pt then climbed one step x2 with FWW. Pt returned to chair sitting SBA. Pt with daughter present and all needs within reach. DIRECTOR TALENT MANAGEMENT and RN present. Gait Assessment Gait Gait Assistance Required: Standby Assistance,1 Person Assist Distance (Feet) 50 Able to Maintain Weight Bearing Status Yes During Gait Assistive Devices Assistive Device Gait Belt,Front Wheeled Walker Orthotic/Prosthetic Devices or Brace: No Gait Deviations General Gait Pattern Antalgic,Decreased Stride Length,Decreased Feet Clearance,Flexed Trunk Factors Limiting Gait Function Factors Limiting Gait Function Decreased Activity Tolerance, Decreased Sensation,Decreased Strength,Limited Range of Motion,Pain,Poor Balance,Poor Safety Awareness Comments Gait Comments See mobility comments for details. Stair Climbing Assessment Evaluation Level of Assist On Stairs Contact Guard Assistance,1 Person Assistance Devices Stair Climbing Assistive Devices Front Wheel Walker Technique/Endurance Stair Climbing Direction Ascend and Descend Stair Climbing Technique Step to Step Number of Steps Climbed 1 Stair Climbing Set # Repetitions (reps) 2 PT-Balance Assessment Sitting Balance and Reactions Static Sitting Balance Ability Good Dynamic Sitting Balance Ability Fair Standing Balance and Reactions Static Standing Balance Ability Fair Dynamic Standing Balance Ability Fair Device Used FWW M5 PT-IP Objective Assessments Start: 02/11/21 08:20 Freq: NEEDED Status: Active Protocol: Document 02/11/21 11:02 AW (Rec: 02/11/21 12:33 AW [id number]) Orientation Orientation/Cognition Level of Alertness Alert Orientation Name,Month,Place,Situation Language Function Ability No Deficits Noted Safety Awareness Decreased Safety Awareness Memory Description No Deficits Noted Gross Range of Motion Lower Extremity ROM Assessment Within Functional Limits Strength Lower Extremity Strength Assessment Left Impaired Hip 3+/5 Knee 4-/5 Ankle 3+/5 Comments Strength Comments RLE grossly 4/5 Coordination Assessment Gross Coordination Gross Coordination WNL Assessment Finger to Nose Test Normal Performance Foot Tapping Test Normal Performance Sensation Assessment Sensation Gross Sensation Left LE Impaired Light Touch Impaired Proprioception (Position) Impaired Comments Sensation Comments Pt reports LLE numbness in hip , lateral thigh, lateral shank , and dorsal foot. 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 Muscle Tone Muscle Tone WNL Yes M6 PT-IP Treatment Start: 02/11/21 08:20 Freq: NEEDED Status: Active Protocol: Document 02/11/21 14:50 AW (Rec: 02/11/21 15:49 AW [id number]) Physical Therapy Treatment Education Education Provided Precautions,Safety M7 PT-IP Assessment and Plan Start: 02/11/21 08:20 Freq: NEEDED Status: Active Protocol: Document 02/12/21 10:51 CLB (Rec: 02/12/21 11:30 CLB [id number]) PT Summary Assessment and Plan Summary Impairments Pain,ROM,Strength,Balance, Sensation,Bed Mobility, Transfers,Gait,Activity Tolerance Progress Towards Goals Progressing Toward Goals Assessment Summary Pt's daughter is able to assist pt with sit<>stand, gait and provide CGA for stair climbing. Pt able to recall 3 /3 back precaution. Pt plans to d/c home with daughter's assist. Goals Bed Mobility Goal Standby Assistance Transfer Goal Standby Assistance,Front Wheeled Walker Gait Goal Standby Assistance,Front Wheel Walker Gait Distance 100 Other Goals - up/down platform step x 2 with FWW or SPC Days to Meet Goals 4 Frequency of Treatment Frequency Of Treatment Twice a Day Precautions Lumbar Precautions Log Roll,No Twisting,Limit Bending,Lifting Restriction of 10 lbs,Gait Belt above Incisional Area Recommendations To Nursing Amount of Assist Needed 1 Person Assist Discharge Recommendations PT Discharge Recommendations Home with Assistance,Home with / Assist Available,Home Health Transportation Needs at Discharge Private Vehicle
--- NOTE | 2021-02-12 12:13 | PC.NURSE ---
c/m/s to BLLES positive;ambulates with fww and PT; island barrier dressing changed to lower back, incisions well-approximated and som intact; hemovac drained removed @0945, gauze/tegaderm to insertion; d/c instructions to patient and pt's daughter include f/u care, rx meds, and s/sx of infection; extra island barrier provided; pt escorted via wheelchair to private auto with personal belongings in hand; pt requests care management to call to discuss home PT
== END 2021-02-12 12:00 | disposition home or self-care (01) | DRG 455 ==
PROVIDERS: Admitting Provider Orthopaedic Surgery Orthopaedic Surgery of the Spine; PCP Internal Medicine; Referring Provider Internal Medicine; Visit Provider Orthopaedic Surgery Orthopaedic Surgery of the Spine
PROC: 0SG10AJ Fusion of 2 or more Lumbar Vertebral Joints with Interbody Fusion Device, Posterior Approach, Anterior Column, Open Approach (ICD-10-PCS; principal; 2021-02-10 08:45)
DX: M48.062 Spinal stenosis, lumbar region with neurogenic claudication (principal); M96.1 Postlaminectomy syndrome, not elsewhere classified; M47.26 Other spondylosis with radiculopathy, lumbar region; Z20.822 Contact with and (suspected) exposure to COVID-19; I10 Essential (primary) hypertension; Z87.891 Personal history of nicotine dependence
CPT/HCPCS: 36415; 72100; 76000; 81001; 85014; 85018; 87635; 94640; 97116; 97161; 97165; 97530; 97535; C1776; C9803; C9290; J0330; J0690; J1100; J1170; J2060; J2250; J2405; J2704; J2765; J3010; J3410

== ENCOUNTER → 2023-04-06 16:30 | Outpatient (CLI) | payer MEDICARE, OTHER, SELFPAY ==
[2021-02-10 16:20] VITALS: BMI 32.3
--- NOTE | 2023-04-06 16:33 | DI.MRI.S_ITS ---
PROCEDURE: MR LUMBAR SPINE WO CON INDICATIONS: Low back pain, unspecified TECHNIQUE: Noncontrast sagittal T1 spin echo and T2 fast echo, sagittal STIR, and T2 fast spin echo through the lumbar spine. In cases with scoliosis, additional coronal T2 fast spin echo may be performed. COMPARISON: [facility], CR, XR LUMBAR SPINE MIN 4V, 04/06/2023, 17:21. [facility] Outside Film, MR, MR LUMBAR SPINE WITHOUT CONTRAST, 12/08/2020, 14:00. FINDINGS: Image quality: There is artifact associated with the metallic hardware. Alignment and Curvature: S-shaped scoliotic curvature is seen. Bone Marrow: Marrow is of normal overall signal. No acute vertebral body compression fractures. Fatty metaplasia can be seen within the sacrum. Spinal Cord: Conus medullaris terminates at the L1 level. Visualized cord demonstrates normal signal and size. Paraspinous Soft Tissues: No paravertebral masses. Postoperative hardware can be seen at the L2 through L4 levels. Disc spacers are seen at L2-L3 and L3-L4. The hardware is better seen on the accompanying plain film study. An expected amount of edema and enhancement can be seen within the postoperative bed posteriorly. T12-L1: Mild loss of disc height is seen. Loss of disc signal is seen. Mild generalized disc bulge is seen. No significant neural foraminal or central canal narrowing can be seen. L1-L2: Moderate loss of disc height is seen. Loss of disc signal is seen. Moderate generalized disc bulge is seen. There is a superimposed central disc protrusion. Moderate to severe bilateral neural foraminal narrowing can be seen, right worse than left. There is a degree of compression seen upon the exiting nerve roots. Moderate central canal narrowing is seen. These imaging findings have progressed compared to the prior study. L2-L3: Postoperative changes are seen at this level. At least moderate disc bulge is seen. Mild to moderate facet hypertrophy can be seen. Minimal bilateral neural foraminal narrowing can be seen. No significant central canal narrowing is seen. The degrees of degenerative narrowing are improved compared to the 2020 preoperative MRI. L3-L4: There are postoperative changes seen at this level. Mild to moderate disc bulge is seen. Moderate facet joint hypertrophy is seen. There is mild right-sided and moderate left-sided neural foraminal narrowing. No significant central canal narrowing is seen. The degrees of degenerative narrowing are clearly improved compared to the preoperative MRI. L4-L5: Moderate loss of disc height is seen. Loss of disc signal is seen. Moderate generalized disc bulge is seen. At least moderate facet hypertrophy can be seen. There is moderate to severe bilateral neural foraminal narrowing seen, with an associated a degree of compression seen upon the exiting nerve roots. Mild central canal narrowing is seen. The degrees of neural foraminal narrowing are worse compared to 2021. L5-S1: At least moderate loss of disc height and disc signal can be seen. Moderate generalized disc bulge is seen. At least moderate facet hypertrophy is seen. There is at least moderate left-sided neural foraminal narrowing. Mild right-sided neural foraminal narrowing is seen. No central canal narrowing is seen. When comparison is made with the prior images, these findings are similar. IMPRESSION: Since the prior MRI, there is been postoperative change L2 through L4. The hardware itself is better demonstrated on plain film. The degrees of degenerative narrowing within the postoperative region are clearly improved compared to the preoperative MRI. Mild interval progression of degenerative change compared to 202 can be seen at L1-L2 and at L4-L5. Dictated by: Timothy Mattson M.D. on 04/06/2023 at 17:58 Approved by: Timothy Mattson M.D. on 04/06/2023 at 18:04
--- NOTE | 2023-04-06 17:05 | DI.RAD.S_ITS ---
PROCEDURE: XR LUMBAR SPINE MIN 4V INDICATIONS: LOW BACK PAIN TECHNIQUE: 5 views of the lumbar spine were acquired, including bilateral oblique views. COMPARISON: [facility], MR, MR LUMBAR SPINE WO CON, 04/06/2023, 17:02. [facility], CR, XR LUMBAR SPINE 2-3V, 02/10/2021, 9:15. FINDINGS: Bones: 5 nonrib-bearing vertebrae are present. S shaped scoliotic curvature. No spondylolisthesis. Postsurgical changes from L2 through L4 posterior spinal fixation and discectomy. The hardware appears intact and in stable position. Degenerative changes of the lumbar spine with osteophytosis, facet arthropathy worse in the lower lumbar spine and multilevel disc height loss No vertebral body compression fractures. No suspicious bony lesions. Soft tissues: Overlying bowel gas pattern is normal. No suspicious soft tissue calcifications. . Atherosclerotic vascular calcifications. Oblique images: Limited evaluation for pars defect secondary to osteopenia and degenerative changes. No definite pars interarticularis defects in. IMPRESSION: Postsurgical changes from L2 through L4 posterior spinal fixation. Multilevel degenerative changes of the lumbar spine with disc height loss and facet arthropathy, worse in the lower lumbar spine. Dictated by: Kai Clay M.D. on 04/07/2023 at 9:14 Approved by: Kai Clay M.D. on 04/07/2023 at 9:18
== END ==
PROVIDERS: PCP Internal Medicine; Referring Provider Anesthesiology; Visit Provider Anesthesiology
DX: M47.816 Spondylosis without myelopathy or radiculopathy, lumbar region; M54.50 Low back pain, unspecified; Z98.1 Arthrodesis status
CPT/HCPCS: 72110; 72148

== ENCOUNTER 2023-05-03 09:09 | Outpatient (CLI) | payer MEDICARE, OTHER, SELFPAY ==
[2021-02-10 16:20] VITALS: BMI 32.3
--- NOTE | 2023-05-03 09:10 | DI.RAD.S_ITS ---
PROCEDURE: PAIN L INTERLAMINAR/CAUDAL INJ INDICATIONS: RADICULOPATHY COMPARISON: [facility], CR, XR LUMBAR SPINE MIN 4V, 04/06/2023, 17:21. FINDINGS: A caudally placed catheter is seen within the sacral canal. The position of the tip of the catheter was confirmed with injection of a small amount of iodinated contrast. IMPRESSION: Intraprocedural examination within normal limits. Dictated by: Timothy Mattson M.D. on 05/03/2023 at 19:27 Approved by: Timothy Mattson M.D. on 05/03/2023 at 19:27
[2023-05-03 09:49] VITALS: BP 173/74; PULSE 77; RESP 20; TEMP 36.6; O2SAT 96
[2023-05-03 10:15] VITALS: BP 188/86; PULSE 81; RESP 17; O2SAT 98
[2023-05-03] MEDS: DEXAMETHASONE 10 MG/ML VIAL INJ (10:16)
[2023-05-03] MEDS: IOPAMIDOL 15 ML VIAL 3 ML INJ (10:16)
[2023-05-03 10:20] VITALS: BP 183/78; PULSE 73; RESP 11; O2SAT 99
[2023-05-03 10:25] VITALS: BP 190/78; PULSE 74; RESP 18; O2SAT 100
[2023-05-03 10:35] VITALS: BP 185/80; PULSE 72; RESP 18; O2SAT 97
--- NOTE | 2023-05-03 11:25 | P.PCN_ITS ---
Date/Time/Diagnoses Date of procedure: 05/03/23 Time of procedure: 10:00 Procedure Notes Physician: Deandre Madrid Total Fluoroscopy time (seconds): 15 Total sedation minutes: 0 Procedure in detail & Post-procedure care: Caudal Epidural Steroid Injection Indications: Xenia is presenting for treatment of lumbar radiculopathy with low back and leg pain. Preoperative diagnosis: Lumbar radiculopathy Postoperative diagnosis: Same Focused Examination: Ax3 Mood and affect are normal Vital Signs: VSS Consent: Following review of allergies and potential side effects/complications, including, but not necessarily limited to, infection, allergic reaction, local tissue breakdown, stroke, temporary or permanent nerve injury, paralysis, and possible , the patient indicated that they understood and agreed to proceed.? An informed consent document was signed by the patient, witnessed by a nurse and placed in the patient's chart.? Additionally, other treatment options including medications and physical therapy were reviewed with the patient. All questions were answered. Site was then marked. Anesthesia: Local Position: Prone Monitoring: NIBP, Pulse oximetry, 3 lead EKG Needle used: 17 gauge Touhy with 19 gauge TheraCath Epidural Catheter Contrast: Isovue 300-M 2mL Injectate: Dexamethasone 10 mg with 1% lidocaine 2 mL and normal saline 2 mL Technique: The skin was prepped with chloraprep and then draped in a sterile fashion. Time out was performed as per protocol. Oxygen applied via NC. The entry point for entering/approaching the epidural space by a caudal approach through the sacral hiatus was identified. Skin and subcutaneous structures of the needle entry site was then infiltrated with 3 mL of lidocaine 1%. Under AP and lateral control, the needle was guided through the sacral hiatus to the S3 level. The catheter was then advanced to L5 using intermittent fluoroscopy. Contrast was then injected and the spread was consistent with the epidural space. There was no evidence for intravascular or intrathecal uptake. After negative aspiration, the above-mentioned injectate was then slowly administered and the needle withdrawn. The patient expressed no unusual discomfort or paresthesias during needle positioning or injection. Band-Aids applied to injection sites. EBL: less than 1 ml Complications: None Post Procedure: Patient was taken to the recovery and monitored. The patient was provided a Pain Log to continue to record the patient's response to the target- specific procedure prior to the patient's follow-up visit with the referring physician. Patient was stable upon discharge. Detailed post procedure instructions were provided. Patient was asked to call in the event of worsening pain, fever, weakness, numbness or bladder or bowel incontinence.
== END 2023-05-03 10:38 | disposition home or self-care (01) ==
LOC: RAD 09:10
PROVIDERS: PCP Internal Medicine; Referring Provider Anesthesiology; Visit Provider Anesthesiology
DX: M54.16 Radiculopathy, lumbar region (principal)
CPT/HCPCS: 62323; J1100

== ENCOUNTER 2023-06-21 09:53 | Outpatient (CLI) | payer MEDICARE, OTHER, SELFPAY ==
[2021-02-10 16:20] VITALS: BMI 32.3
--- NOTE | 2023-06-21 09:54 | DI.RAD.S_ITS ---
PROCEDURE: PAIN L/S FACET INJ/BLK 1ST BOWEN INDICATIONS: SPONDYLOSIS COMPARISON: [facility], XA, PAIN L INTERLAMINAR/CAUDAL INJ, 05/03/2023, 10:15. FINDINGS: Fluoroscopic spot filming was performed to verify placement of spinal needles on both sides along the courses of the L4 and L5 nerve roots, as labeled on the films. Appropriate location of the needle tips was confirmed by injection of iodinated contrast. IMPRESSION: Intraprocedural examination demonstrating appropriate positions of the needles. Dictated by: Timothy Mattson M.D. on 06/21/2023 at 17:05 Approved by: Timothy Mattson M.D. on 06/21/2023 at 17:06
[2023-06-21 10:00] VITALS: BP 160/56; PULSE 84; RESP 18; TEMP 36.4; O2SAT 97
[2023-06-21 10:17] VITALS: BP 177/82; PULSE 78; RESP 22; O2SAT 98
[2023-06-21] MEDS: iopamidoL 15 ML VIAL 3 ML INJ (10:17)
[2023-06-21] MEDS: BUPIVACAINE 0.5% (PF) 10 ML VIAL 2 ML INJ (10:17)
[2023-06-21 10:22] VITALS: BP 163/72; PULSE 73; RESP 9; O2SAT 99
[2023-06-21 10:24] VITALS: BP 156/72; PULSE 73; RESP 13; O2SAT 99
[2023-06-21 10:30] VITALS: BP 159/73; PULSE 86; RESP 18; O2SAT 97
--- NOTE | 2023-06-21 11:54 | P.PCN_ITS ---
Date/Time/Diagnoses Date of procedure: 06/21/23 Time of procedure: 10:00 Procedure Notes Physician: Deandre Madrid Total Fluoroscopy time (seconds): 13 Total sedation minutes: 0 Procedure in detail & Post-procedure care: Bilateral L4, 5 Lumbar Medial Branch Blocks Indications: Xenia is presenting for treatment of lumbar spondylosis with low back pain. Preoperative diagnosis: Lumbar spondylosis Postoperative diagnosis: Same Pre-procedure History: Patient demonstrates today moderate to severe non- radicular back pain without neurologic deficit aggravated by hyperextension yes Back pain greater than leg pain? yes Patient today has tenderness over the suspected joint(s) yes History of post-traumatic injury? no F Hypertrophic arthropathy yes Back pain associated with suspected motion segment instability, hypermobility or pseudoarthrosis no Pre-testing pain score (VAS): 8/10 Focused Examination: Ax3 Mood and affect are normal Vital Signs: VSS Consent: Following review of allergies and potential side effects/complications, including, but not necessarily limited to, infection, allergic reaction, local tissue breakdown, stroke, temporary or permanent nerve injury, paralysis, and possible , the patient indicated that they understood and agreed to proceed.? An informed consent document was signed by the patient, witnessed by a nurse and placed in the patient's chart.? Additionally, other treatment options including medications and physical therapy were reviewed with the patient. All questions were answered. Site was then marked. Anesthesia: Local Position: Prone Monitoring: NIBP, Pulse oximetry, 3 lead EKG Needle used: 22 ga 3.5 inch spinal needle Contrast: Isovue 300M Injectate: 0.5% bupivacaine 1 mL per site Procedure: The patient was brought into the procedure room and positioned into the prone position. Skin was prepped with a Chloraprep solution, allowed to air dry, and then draped in sterile fashion.? The right L5-S1 facet joints were visually identified with fluoroscopy. Lidocaine 1% was used to anesthetize the skin over each target destination with a 25ga needle. A 22 ga, 3.5 inch spinal needle was advanced to the location of the medial branch at the junction of the superior articular process and the transverse process at right L5 and the base of the SAP of the sacrum using intermittent fluoroscopy in the AP view. Isovue 300M contrast 0.2ml was injected at each level outlining the medial borders for each level and the base of the SAP of the sacrum in the AP and lateral views. There was no evidence of vascular or intrathecal uptake. The above injectate was slowly injected at each target destination. The left L5-S1 facet joints were visually identified with fluoroscopy. Lidocaine 1% was used to anesthetize the skin over each target destination with a 25ga nee dle. A 22 ga, 3.5 inch spinal needle was advanced to the location of the medial branch at the junction of the superior articular process and the transverse process at left L5 and the base of the SAP of the sacrum using intermittent fluoroscopy in the AP view. Isovue 300M contrast 0.2ml was injected at each level outlining the medial borders for each level and the base of the SAP of the sacrum in the AP and lateral views. There was no evidence of vascular or intrathecal uptake. The above injectate was slowly injected at each target destination. At the end of the procedure the needles were withdrawn and Band- Aids were applied for a dressing. Post Procedure: Patient was taken to the recovery and monitored. The patient was provided a Pain Log to continue to record the patient's response to the target- specific procedure prior to the patient's follow-up visit with the referring physician. Patient was stable upon discharge. Detailed post procedure instructions were provided. Patient was asked to call in the event of worsening pain, fever, weakness, numbness or bladder or bowel incontinence. Postoperatively, today patient demonstrates the following changes with h yperextension and with tenderness over the suspected joint(s). Provacative testing using the Read's facet loading test Right side Left side Directly before the block ?VAS (0-10) = 8/10 VAS (0-10) = 8/10 5 minutes after the block VAS (0-10) = 4/10 VAS (0-10) = 4/10 Percentage relief obtained with this diagnostic block 50% 50% Any improved physical functioning directly after the blocks? Range of motion Based on the medial branches blocked today, if the patient meets insurance criteria for radiofrequency, the treatment should result in the denervation of the bilateral L5-S1 facet joint nerves. We would expect to denervate a total of 2 facets during the radiofrequency ablation.
== END 2023-06-21 10:40 | disposition home or self-care (01) ==
PROVIDERS: PCP Internal Medicine; Referring Provider Anesthesiology; Visit Provider Anesthesiology
DX: M47.816 Spondylosis without myelopathy or radiculopathy, lumbar region (principal)
CPT/HCPCS: 64493